=== PATIENT | male | born 1930 | race Caucasian/White ===

== ENCOUNTER 2016-03-25 16:12 | Emergency (ER) | payer MEDICARE ==
[2016-03-25 17:07] VITALS: TEMP 98
[2016-03-25] MEDS ORDERED: RX INFO: IV CONTRAST WAS GIVEN 1 EACH MISC MISCELLANE PRN (19:59)
--- NOTE | 2016-03-25 20:06 | ED ---
General Adult HPI - General Chief complaint: Fall Stated complaint: Fall - Head Injury Time Seen by Provider: 03/25/16 19:26 Source: patient, RN notes reviewed Mode of arrival: ambulatory Limitations: no limitations - History of Present Illness Initial comments: This is an 85-year-old male who presents after falling down 3 steps last nightst night. Patient states he was still having pain today and was concerned. Patient states he was in his garage when the lights went out and he tried to go back down the stairs but he tripped and fell on the right side of his body also hitting the right side of his head. Patient is unsure if he lost consciousness. Patient states he has a mild headache but denies any visual changes, diplopia, nausea/vomiting/neck pain. Patient states it was difficult for him to get up off of the ground floor and patient has only been ambulating a little bit since the fall. Patient denies being on any blood thinners. Patient denies any dizziness. Patient also complains of right-sided rib pain but denies any shortness of breath. Patient also complains of some mild abdominal pain but patient does not know when this started. Patient denies any recent fever, chills, chest pain, back pain, numbness, tingling, hematuria, or any other complaints. - Related Data Home Medications Medication Instructions Recorded Confirmed Brimonidine Tartrate [Alphagan P 1 drops BOTH EYES BID 03/25/16 03/25/16 0.15% Ophth Soln] Calcium Carbonate [Calcium] 600 mg PO DAILY 03/25/16 03/25/16 Latanoprost [Xalatan 0.005%] 1 drop BOTH EYES HS 03/25/16 03/25/16 Multivitamin [Men's Multi-Vitamin] 1 tab PO DAILY 03/25/16 03/25/16 Travoprost [Travatan Z 0.004%] 1 drop BOTH EYES BID 03/25/16 03/25/16 Allergies Allergy/AdvReac Type Severity Reaction Status Date / Time No Known Allergies Allergy Verified 03/25/16 19:37 Review of Systems ROS Statement: Those systems with pertinent positive or pertinent negative responses have been documented in the HPI. ROS Other: All systems not noted in ROS Statement are negative. Past Medical History Past Medical History: Diabetes Mellitus Additional Past Medical History / Comment(s): glaucoma History of Any Multi-Drug Resistant Organisms: None Reported Additional Past Surgical History / Comment(s): pt did not remember his surgery Past Psychological History: No Psychological Hx Reported Smoking Status: Former smoker Past Alcohol Use History: Daily Past Drug Use History: None Reported General Exam - General Exam Comments Initial Comments: General: The patient is awake and alert, in no distress, and does not appear acutely ill. Head: No pain with palpation of the facial bones. Head is normocephalic, atraumatic. Eye: Pupils are equal, round and reactive to light, extra-ocular movements are intact. No nystagmus. There is normal conjunctiva bilaterally. No signs of icterus. Ears: TMs pink and pearly with intact cone of light bilaterally. Normal external ear canals Nose: Nasal turbinates pink and moist Mouth and throat: There are moist mucous membranes and no oral lesions. Neck: The neck is supple, there is no tenderness or JVD. No cervical midline tenderness. Cardiovascular: There is a regular rate and rhythm. No murmur, rub or gallop is appreciated. Respiratory: Lungs are clear to auscultation, respirations are non-labored, breath sounds are equal. No wheezes, stridor, rales, or rhonchi. Gastrointestinal: There is mild tenderness to palpation over the right lower quadrant. Soft, non-distended, abdomen without masses or organomegaly noted. There is no rebound or guarding present. No CVA tenderness. Bowel sounds are unremarkable. Musculoskeletal: There is tenderness to palpation over the right side hip, right shoulder and right side ribs. Normal ROM, Strength 5/5. Sensation intact. Posterior tibial pulses equal bilaterally 2+. Neurological: A&O x 3. CN II-XII intact, There are no obvious motor or sensory deficits. Coordination appears grossly intact. Speech is normal. Skin: Skin is warm and dry and no rashes or lesions are noted. Psychiatric: Cooperative, appropriate mood & affect, normal judgment. Limitations: no limitations Course Vital Signs 03/25/16 03/25/16 03/25/16 16:55 20:40 22:57 Temperature 98.0 F Pulse Rate 64 78 73 Respiratory 18 16 16 Rate Blood Pressure 197/84 166/78 176/77 O2 Sat by Pulse 96 98 97 Oximetry Medical Decision Making - Medical Decision Making Physical a 5-year-old male who presents after a fall that occurred today. On physical exam patient is neurologically intact. Patient has tenderness over the right shoulder, right hip and right ribs. Patient also complains of mild headache. An x-ray of the right hip and AP pelvis was done and reviewed showing:X-ray hip right in AP pelvis: There is no acute fracture or dislocation of the pelvis or hip. Reported by Dr. Marquez X-ray of the right shoulder was done and reviewed showing:X-ray shoulder: No fracture or dislocation. CT of the head and C-spine was done and reviewed showing: #1 there is no acute fracture or dislocation evident in the cervical spine. #2 no acute intracranial hemorrhage, mass effect, or midline shift is seen. Reported by Dr. Marquez CT of chest, abdomen and pelvis was done and reviewed showing: No acute osseous fracture, abnormal fluid collection, or evidence of solid organ injury in the thorax, abdomen or pelvis. Report read by Dr. Marquez. Discussed the results with patient. Patient was up ambulating and answering all questions appropriately. I discussed the importance of following up with his family physician in the next 24-48 hours. I discussed the signs and symptoms of worsening head injury. I discussed return parameters. Discussed that patient should follow up with PCP in one to 2 days or return to the [facility] for any worsening symptoms or for any further concerns. Patient was receptive to this plan and patient will be discharged home. - Lab Data Result diagrams: 03/25/16 20:41 03/25/16 20:41 Lab Results 03/25/16 03/25/16 03/25/16 Range/Units 20:41 20:41 20:41 WBC 8.6 (3.8-10.6) k/uL RBC 4.56 (4.30-5.90) m/uL Hgb 13.3 (13.0-17.5) gm/dL Hct 40.9 (39.0-53.0) % MCV 89.5 (80.0-100.0) fL MCH 29.1 (25.0-35.0) pg MCHC 32.5 (31.0-37.0) g/dL RDW 13.1 (11.5-15.5) % Plt Count 238 (150-450) k/uL Neutrophils % 51 % Lymphocytes % 37 % Monocytes % 6 % Eosinophils % 4 % Basophils % 0 % Neutrophils # 4.4 (1.3-7.7) k/uL Lymphocytes # 3.2 (1.0-4.8) k/uL Monocytes # 0.5 (0-1.0) k/uL Eosinophils # 0.4 (0-0.7) k/uL Basophils # 0.0 (0-0.2) k/uL PT 10.0 (9.0-12.0) sec INR 1.0 (<1.1) APTT 23.0 (22.0-30.0) sec Sodium 144 (137-145) mmol/L Potassium 4.2 (3.5-5.1) mmol/L Chloride 103 (98-107) mmol/L Carbon Dioxide 29 (22-30) mmol/L Anion Gap 12 mmol/L BUN 19 (9-20) mg/dL Creatinine 0.60 L (0.66-1.25) mg/dL Est GFR (MDRD) Af Amer >60 (>60 ml/min/1.73 sqM) Est GFR (MDRD) Non-Af >60 (>60 ml/min/1.73 sqM) Glucose 107 H (74-99) mg/dL Calcium 9.7 (8.4-10.2) mg/dL Total Bilirubin 0.4 (0.2-1.3) mg/dL AST 31 (17-59) U/L ALT 32 (21-72) U/L Alkaline Phosphatase 71 (38-126) U/L Total Protein 7.6 (6.3-8.2) g/dL Albumin 4.2 (3.5-5.0) g/dL Amylase 94 (30-110) U/L Lipase 154 (23-300) U/L Disposition Clinical Impression: Fall, Head injury Disposition: HOME SELF-CARE Condition: Good Instructions: Head Injury (ED) Additional Instructions: Please follow-up with family doctor in the next 2 days of symptoms have not improved. Please return to emergency room if the symptoms increase or worsen or for any other concerns. Referrals: Sylvester Pena DO [Primary Care Provider] - 1-2 days Time of Disposition: 23:24
[2016-03-25 20:48] VITALS: RESP 16
[2016-03-25 20:53] LABS: Basophils % (A) 0 %; CH 29.6; CHCM 33.2; Eosinophils # (A) 0.4 k/uL (0-0.7); Eosinophils % (A) 4 %; HCT 40.9 % (39.0-53.0); HDW 2.38; HGB 13.3 gm/dL (13.0-17.5); Luc # (Auto) 0.17; Luc % (Auto) 2; Lymphocytes # (A) 3.2 k/uL (1.0-4.8); Lymphocytes % (A) 37 %; MCH 29.1 pg (25.0-35.0); MCHC 32.5 g/dL (31.0-37.0); MCV 89.5 fL (80.0-100.0); Mean Platelet Volume 7.3; Monocytes # (A) 0.5 k/uL (0-1.0); Monocytes % (A) 6 %; Neutrophils # (A) 4.4 k/uL (1.3-7.7); Neutrophils % (A) 51 %; RBC 4.56 m/uL (4.30-5.90); RDW 13.1 % (11.5-15.5); WBC 8.6 k/uL (3.8-10.6); WBC (Perox) 8.64
[2016-03-25 21:08] LABS: ALT 32 U/L (21-72); AST 31 U/L (17-59); Alkaline Phosphatase 71 U/L (38-126); Amylase 94 U/L (30-110); Anion Gap 12 mmol/L; Blood Urea Nitrogen 19 mg/dL (9-20); Calcium 9.7 mg/dL (8.4-10.2); Carbon Dioxide 29 mmol/L (22-30); Chloride 103 mmol/L (98-107); Glucose 107 mg/dL (74-99); Non-African American GFR(MDRD) >60 (>60 ml/min/1.73 sqM); Potassium 4.2 mmol/L (3.5-5.1); Sodium 144 mmol/L (137-145); Total Bilirubin 0.4 mg/dL (0.2-1.3); Total Protein 7.6 g/dL (6.3-8.2)
--- NOTE | 2016-03-25 21:23 | XR ---
Right shoulder HISTORY: Trauma and pain 3 views of the right shoulder No comparisons Arthropathy present at the acromioclavicular joint. Distal acromion is downturned. Suspect there are pseudocysts within the humeral head. Alignment and bone mineralization are maintained. IMPRESSION: No fracture or dislocation.
--- NOTE | 2016-03-25 21:25 | XR ---
EXAMINATION TYPE: XR Hip RT and AP Pelvis DATE OF EXAM: 03/25/2016 9:13 PM COMPARISON: NONE HISTORY: Pain TECHNIQUE: A single AP view of the pelvis is obtained. Two views of the right hip are obtained. FINDINGS: There is no acute fracture/dislocation evident in the pelvis. The hip and sacroiliac join ts appear symmetric and unremarkable. The overlying soft tissue appears unremarkable. Two views of right hip show no acute fracture or dislocation. No focal lytic or sclerotic lesion see n in the proximal right femur. The overlying soft tissue is unremarkable. IMPRESSION: There is no acute fracture or dislocation in the pelvis or right hip.
--- NOTE | 2016-03-25 22:07 | CT ---
EXAMINATION TYPE: CT brain alan wo con DATE OF EXAM: 03/25/2016 9:44 PM COMPARISON: CT brain 10 December 2015 HISTORY: Fall today and confusion. CT DLP: 965.6 mGycm Automated exposure control for dose reduction was used. TECHNIQUE: CT scan of the head and cervical spine are performed without contrast. FINDINGS: There is no acute intracranial hemorrhage, mass effect, or midline shift identified. The ventricles and sulci are within normal limits in size. Periventricular white matter demyelination ch anges again noted. The globes are intact and the visualized sinuses are clear. Cervical spine is visualized in its entirety from C1 through upper thoracic levels and demonstrates s atisfactory alignment without evidence of acute fracture or dislocation. Multilevel facet arthropathy and foraminal encroachment change is present. Multilevel spondylosis. Loss of disc height present at C4-5, C5-6 and C6-7, minimal anterolisthesis grade 1 C4-5 likely due to facet arthropathy changes. P osterior extension of endplate disc complex is causes some anterior mass effect on the thecal sac at C5-6 and C6-7. Prevertebral soft tissue appears within normal limits. The C1-C2 articulation is unre markable. IMPRESSION: 1. There is no acute fracture or dislocation evident in the cervical spine. 2. No acute intracranial hemorrhage, mass effect, or midline shift is seen.
[2016-03-25 23:02] VITALS: BP 176/77; PULSE 73
--- NOTE | 2016-03-25 23:20 | CT ---
EXAMINATION TYPE: CT ChestAbdPelvis w con DATE OF EXAM: 03/25/2016 9:44 PM COMPARISON: Prior CT chest 15 March 2012 HISTORY: Abdominal pain after fall today. CT DLP: 2466.6 mGycm Automated exposure control for dose reduction was used. CONTRAST: CT scan of the chest, abdomen and pelvis is performed without Oral Contrast and with IV Contrast, pat ient injected with 100 mL of Omnipaque 300. FINDINGS: LUNGS: The lungs are grossly clear, there is no concerning parenchymal mass or nodule identified. B ronchiectasis present in the right middle lobe. There is no pleural effusion or pneumothorax seen. T he tracheobronchial tree is patent. MEDIASTINUM: There are no greater than 1 cm hilar or mediastinal lymph nodes. No pericardial effusi on is seen. AORTA: No significant abnormality is seen. Atheromatous changes are present. OTHER: Coronary artery calcifications are present. Calcifications present at the aortic root. There is a hiatal hernia. LIVER/GB: No significant abnormality is appreciated. PANCREAS: No significant abnormality is seen. SPLEEN: No significant abnormality is seen. ADRENALS: No significant abnormality is seen. KIDNEYS: Parapelvic cysts are present within the right kidney. REPRODUCTIVE ORGANS: No gross abnormality seen. BOWEL: extensive diverticular change present within the sigmoid colon. FREE AIR: No Free Air visible. ASCITES: None seen. RETROPERITONEAL ADENOPATHY: No retroperitoneal adenopathy is seen. LYMPH NODES: No greater than 1 cm abdominal or pelvic lymph nodes are appreciated. URINARY BLADDER: No significant abnormality is seen. PELVIC ADENOPATHY: None visualized. OSSEOUS STRUCTURES: No significant abnormality is seen. IMPRESSION: No acute osseous fracture, abnormal fluid collection, or evidence of solid organ injury i n the thorax, abdomen, or pelvis.
== END 2016-03-25 23:26 | disposition home or self-care (01) ==
LOC: EC 16:12
DX: S09.90XA Unspecified injury of head, initial encounter (principal); W10.8XXA Fall (on) (from) other stairs and steps, initial encounter; Y92.015 Private garage of single-family (private) house as the place of occurrence of the external cause; Z79.899 Other long term (current) drug therapy; H40.9 Unspecified glaucoma; Z87.891 Personal history of nicotine dependence; M25.551 Pain in right hip; M25.511 Pain in right shoulder; R07.81 Pleurodynia
CPT/HCPCS: 36415; 80053; 82150; 83690; 85025; 85610; 85730; 73502; 73030; 72125; 70450; 71260; 74177; 99284; Q9967

== ENCOUNTER → 2016-04-04 | Outpatient (CLI) | payer MEDICARE ==
--- NOTE | 2016-04-05 09:29 | ECHOF ---
Referral Reason:I35.0 Nonrheumatic aortic stenosis MEASUREMENTS -------- HEIGHT: 182.9 cm WEIGHT: 90.7 kg BP: IVSd: 1.0 cm (0.6 - 1.1) LVIDd: 4.1 cm (3.9 - 5.3) LVPWd: 1.1 cm (0.6 - 1.1) IVSs: 1.9 cm LVIDs: 1.8 cm LVPWs: 1.4 cm Ao Diam: 3.0 cm (2.0 - 3.7) AV Cusp: 0.8 cm (1.5 - 2.6) LA Diam: 3.6 cm (2.7 - 3.8) MV EXCURSION: 7.289 mm (> 18.000) MV EF SLOPE: 35 mm/s (70 - 150) EPSS: 0.4 cm MV E Enzo: 0.87 m/s MV DecT: 479 ms MV A Enzo: 1.40 m/s MV E/A Ratio: 0.62 AV maxP.64 mmHg AV meanP.44 mmHg AR PHT: 387 ms RAP: 5.00 mmHg RVSP: 17.98 mmHg FINDINGS -------- Undetermined rhythm. This was a technically good study. Left ventricular wall thickness is normal. Overall left ventricular systolic function is normal with, an EF between 55 - 60 %. The right ventricle is normal in size and function. The left atrium is normal in size. The right atrium is normal in size. Aortic valve is trileaflet and is moderately thickened. Trace amount of aortic regurgitation. There is moderate aortic stenosis present. Peak/mean gradient across the Aortic Valve is 30.64mmHg / 21.44mmHg. The mitral valve leaflets are mildly thickened. Mild mitral annular calcification present. Mild mitral regurgitation is present. Mild tricuspid regurgitation present. The right ventricular systolic pressure, as measured by Doppler, is 17.98mmHg. Pulmonic valve appears structurally normal. The aortic root size is normal. The pericardium is normal. CONCLUSIONS -------- 1. Undetermined rhythm. 2. There is moderate aortic stenosis present. 3. Peak/mean gradient across the Aortic Valve is 30.64mmHg / 21.44mmHg. 4. The mitral valve leaflets are mildly thickened. 5. Mild mitral annular calcification present. 6. Mild mitral regurgitation is present. 7. Mild tricuspid regurgitation present. 8. The right ventricular systolic pressure, as measured by Doppler, is 17.98mmHg. 9. Pulmonic valve appears structurally normal. 10. The aortic root size is normal. 11. The pericardium is normal. 12. This was a technically good study. 13. Left ventricular wall thickness is normal. 14. Overall left ventricular systolic function is normal with, an EF between 55 - 60 %. 15. The right ventricle is normal in size and function. 16. The left atrium is normal in size. 17. The right atrium is normal in size. 18. Aortic valve is trileaflet and is moderately thickened. 19. Trace amount of aortic regurgitation. ORTHO NURSE: Jeanie Montejo RDCS
== END | disposition home or self-care (01) ==
LOC: RADECHMAIN 11:30
PROVIDERS: ATTEND Family Medicine
DX: I08.3 Combined rheumatic disorders of mitral, aortic and tricuspid valves (principal)
CPT/HCPCS: 93306

== ENCOUNTER 2017-06-06 10:16 | Emergency (ER) | payer MEDICARE ==
--- NOTE | 2017-06-06 10:29 | ED ---
General Adult HPI - General Stated complaint: Fall Time Seen by Provider: 06/06/17 10:19 Source: patient, EMS, RN notes reviewed, old records reviewed - History of Present Illness Initial comments: 86 yo male presents status post fall. According to EMS patient fell approximately 10 PM yesterday evening. He's been on the ground for approximately 12 hours. Patient states he slid from a chair, he did hit his head. There is no history of anticoagulation. Patient denies any chest pain or shortness of breath. He has no pain complaints at the time my evaluation. Patient does have some baseline confusion. And history of diabetes. EMS denies any external signs of trauma on their exam. - Related Data Home Medications Medication Instructions Recorded Confirmed Brimonidine Tartrate [Alphagan P 1 drops BOTH EYES BID 03/25/16 06/06/17 0.15% Ophth Soln] Latanoprost [Xalatan 0.005%] 1 drop BOTH EYES HS 03/25/16 06/06/17 Multivitamin [Men's Multi-Vitamin] 1 tab PO DAILY 03/25/16 06/06/17 Ascorbic Acid [Vitamin C] 500 mg PO DAILY 06/06/17 06/06/17 Dorzolamide 2% [Trusopt 2%] 1 drops BOTH EYES BID 06/06/17 06/06/17 Ferrous Sulfate [Feosol] 325 mg PO DAILY 06/06/17 06/06/17 Vitamin A 8,000 unit PO DAILY 06/06/17 06/06/17 Allergies Allergy/AdvReac Type Severity Reaction Status Date / Time No Known Allergies Allergy Verified 06/06/17 11:23 Review of Systems ROS Statement: Those systems with pertinent positive or pertinent negative responses have been documented in the HPI. ROS Other: All systems not noted in ROS Statement are negative. Past Medical History Past Medical History: Diabetes Mellitus Additional Past Medical History / Comment(s): glaucoma History of Any Multi-Drug Resistant Organisms: None Reported Additional Past Surgical History / Comment(s): pt did not remember his surgery Past Psychological History: No Psychological Hx Reported Smoking Status: Former smoker Past Alcohol Use History: Daily Past Drug Use History: None Reported General Exam General appearance: alert, in no apparent distress Head exam: Present: atraumatic, normocephalic Eye exam: Present: normal appearance, PERRL (2 mm bilaterally) ENT exam: Present: mucous membranes dry Neck exam: Present: normal inspection. Absent: tenderness, meningismus Respiratory exam: Present: normal lung sounds bilaterally. Absent: respiratory distress, wheezes Cardiovascular Exam: Present: regular rate, normal rhythm GI/Abdominal exam: Present: soft. Absent: distended, tenderness Extremities exam: Present: normal inspection, tenderness (Right knee tenderness palpation, patient states is chronic), normal capillary refill Back exam: Present: normal inspection, full ROM. Absent: tenderness Neurological exam: Present: alert, oriented X3, CN II-XII intact. Absent: motor sensory deficit Psychiatric exam: Present: normal affect, normal mood Skin exam: Present: warm, dry, intact. Absent: cyanosis, diaphoretic Course Vital Signs 06/06/17 06/06/17 06/06/17 10:18 10:30 12:45 Temperature 97.8 F Pulse Rate 62 81 60 Respiratory 19 16 16 Rate Blood Pressure 207/94 197/86 161/76 O2 Sat by Pulse 95 97 99 Oximetry - Reevaluation(s) Reevaluation #1: 06/06/17 14:09 Case discussed with the patient's son who is at bedside, he has been having some issues with dementia, currently lives alone, he is checked on daily by visiting nurses. His son recently moved to the area to keep a close eye on him. EKG Findings - EKG Comments: EKG Findings:: EKG, normal sinus rhythm, right bundle branch block, ventricular rate 65, NH interval 182, QRS duration [address] segment elevation Medical Decision Making - Medical Decision Making 86-year-old male with fall and difficult ambulating. Head CT is obtained, negative for any acute intra-critical pathology, C-spine is negative for fracture subluxation, chest x-ray negative for acute intrathoracic processes. Pelvis is negative for acute bony abnormality. X-ray knee shows effusion, patient does have pain in that knee. He will be given orthopedic follow-up. CBC, CMP, and urinalysis are unremarkable. Patient has been told by his family that he should likely move into an assisted living facility or prison, patient wishes to stay at home. He wishes to be discharged at this time. Patient's son will arrange for close outpatient follow-up and the possibility of placement as well as home medical alert system. Patient is put in a knee immobilizer and given a prescription for a walker. - Lab Data Result diagrams: 06/06/17 10:30 06/06/17 10:30 Lab Results 06/06/17 06/06/17 06/06/17 Range/Units 10:30 10:30 10:30 WBC 10.1 (3.8-10.6) k/uL RBC 4.46 (4.30-5.90) m/uL Hgb 13.3 (13.0-17.5) gm/dL Hct 39.2 (39.0-53.0) % MCV 87.8 (80.0-100.0) fL MCH 29.8 (25.0-35.0) pg MCHC 33.9 (31.0-37.0) g/dL RDW 13.1 (11.5-15.5) % Plt Count 274 (150-450) k/uL Neutrophils % 74 % Lymphocytes % 18 % Monocytes % 4 % Eosinophils % 2 % Basophils % 0 % Neutrophils # 7.5 (1.3-7.7) k/uL Lymphocytes # 1.8 (1.0-4.8) k/uL Monocytes # 0.4 (0-1.0) k/uL Eosinophils # 0.2 (0-0.7) k/uL Basophils # 0.0 (0-0.2) k/uL PT (9.0-12.0) sec INR (<1.2) APTT (22.0-30.0) sec Sodium 142 (137-145) mmol/L Potassium 4.1 (3.5-5.1) mmol/L Chloride 103 (98-107) mmol/L Carbon Dioxide 29 (22-30) mmol/L Anion Gap 10 mmol/L BUN 19 (9-20) mg/dL Creatinine 0.57 L (0.66-1.25) mg/dL Est GFR (CKD-EPI)AfAm >90 (>60 ml/min/1.73 sqM) Est GFR (CKD-EPI)NonAf >90 (>60 ml/min/1.73 sqM) Glucose 128 H (74-99) mg/dL Calcium 9.7 (8.4-10.2) mg/dL Total Bilirubin 0.4 (0.2-1.3) mg/dL AST 24 (17-59) U/L ALT 22 (21-72) U/L Alkaline Phosphatase 62 (38-126) U/L Total Creatine Kinase 177 H (55-170) U/L CK-MB (CK-2) 1.3 (0.0-2.4) ng/mL CK-MB (CK-2) Rel Index 0.7 Troponin I <0.012 (0.000-0.034) ng/mL Total Protein 7.1 (6.3-8.2) g/dL Albumin 4.1 (3.5-5.0) g/dL Urine Color Urine Appearance (Clear) Urine pH (5.0-8.0) Ur Specific [place] (1.001-1.035) Urine Protein (Negative) Urine Glucose (UA) (Negative) Urine Ketones (Negative) Urine Blood (Negative) Urine Nitrite (Negative) Urine Bilirubin (Negative) Urine Urobilinogen (<2.0) mg/dL Ur Leukocyte Esterase (Negative) 06/06/17 06/06/17 Range/Units 10:30 11:09 WBC (3.8-10.6) k/uL RBC (4.30-5.90) m/uL Hgb (13.0-17.5) gm/dL Hct (39.0-53.0) % MCV (80.0-100.0) fL MCH (25.0-35.0) pg MCHC (31.0-37.0) g/dL RDW (11.5-15.5) % Plt Count (150-450) k/uL Neutrophils % % Lymphocytes % % Monocytes % % Eosinophils % % Basophils % % Neutrophils # (1.3-7.7) k/uL Lymphocytes # (1.0-4.8) k/uL Monocytes # (0-1.0) k/uL Eosinophils # (0-0.7) k/uL Basophils # (0-0.2) k/uL PT 10.1 (9.0-12.0) sec INR 1.0 (<1.2) APTT 22.6 (22.0-30.0) sec Sodium (137-145) mmol/L Potassium (3.5-5.1) mmol/L Chloride (98-107) mmol/L Carbon Dioxide (22-30) mmol/L Anion Gap mmol/L BUN (9-20) mg/dL Creatinine (0.66-1.25) mg/dL Est GFR (CKD-EPI)AfAm (>60 ml/min/1.73 sqM) Est GFR (CKD-EPI)NonAf (>60 ml/min/1.73 sqM) Glucose (74-99) mg/dL Calcium (8.4-10.2) mg/dL Total Bilirubin (0.2-1.3) mg/dL AST (17-59) U/L ALT (21-72) U/L Alkaline Phosphatase (38-126) U/L Total Creatine Kinase (55-170) U/L CK-MB (CK-2) (0.0-2.4) ng/mL CK-MB (CK-2) Rel Index Troponin I (0.000-0.034) ng/mL Total Protein (6.3-8.2) g/dL Albumin (3.5-5.0) g/dL Urine Color Yellow Urine Appearance Clear (Clear) Urine pH 6.5 (5.0-8.0) Ur Specific [place] 1.012 (1.001-1.035) Urine Protein Negative (Negative) Urine Glucose (UA) Negative (Negative) Urine Ketones Negative (Negative) Urine Blood Negative (Negative) Urine Nitrite Negative (Negative) Urine Bilirubin Negative (Negative) Urine Urobilinogen <2.0 (<2.0) mg/dL Ur Leukocyte Esterase Negative (Negative) Disposition Clinical Impression: Fall, Knee effusion Disposition: HOME SELF-CARE Condition: Fair Instructions: Fall Prevention for Older Adults (ED), Swollen Knee Joint (ED) Referrals: Sylvester Pena DO [Primary Care Provider] - 1-2 days Dawit Garibay MD [Medical Doctor] - 1-2 days Time of Disposition: 14:11
[2017-06-06 10:35] VITALS: RESP 16
[2017-06-06 10:45] LABS: Basophils % (A) 0 %; Eosinophils # (A) 0.2 k/uL (0-0.7); Eosinophils % (A) 2 %; HCT 39.2 % (39.0-53.0); HGB 13.3 gm/dL (13.0-17.5); Lymphocytes # (A) 1.8 k/uL (1.0-4.8); Lymphocytes % (A) 18 %; MCH 29.8 pg (25.0-35.0); MCHC 33.9 g/dL (31.0-37.0); MCV 87.8 fL (80.0-100.0); Mean Platelet Volume 6.6; Monocytes # (A) 0.4 k/uL (0-1.0); Monocytes % (A) 4 %; Neutrophils # (A) 7.5 k/uL (1.3-7.7); Neutrophils % (A) 74 %; Platelet Count 274 k/uL (150-450); RBC 4.46 m/uL (4.30-5.90); RDW 13.1 % (11.5-15.5); WBC 10.1 k/uL (3.8-10.6)
[2017-06-06 10:54] LABS: Partial Thromboplastin Time 22.6 sec (22.0-30.0); Prothrombin Time 10.1 sec (9.0-12.0)
[2017-06-06 10:57] LABS: ALT 22 U/L (21-72); AST 24 U/L (17-59); Albumin 4.1 g/dL (3.5-5.0); Alkaline Phosphatase 62 U/L (38-126); Anion Gap 10 mmol/L; Blood Urea Nitrogen 19 mg/dL (9-20); Calcium 9.7 mg/dL (8.4-10.2); Carbon Dioxide 29 mmol/L (22-30); Chloride 103 mmol/L (98-107); Glucose 128 mg/dL (74-99); Potassium 4.1 mmol/L (3.5-5.1); Sodium 142 mmol/L (137-145); Total Bilirubin 0.4 mg/dL (0.2-1.3); Total Protein 7.1 g/dL (6.3-8.2)
[2017-06-06 11:07] LABS: Creatine Kinase 177 U/L (55-170)
[2017-06-06 11:20] LABS: Creatine Kinase MB 1.3 ng/mL (0.0-2.4); Troponin I <0.012 ng/mL (0.000-0.034)
[2017-06-06 11:23] LABS: Appearance,Urine Clear (Clear); Bilirubin,Urine Negative (Negative); Blood,Urine Negative (Negative); Color,Urine Yellow; Glucose,Urine (UA) Negative (Negative); Ketones,Urine Negative (Negative); Leukocyte Esterase,Urine Negative (Negative); Nitrite,Urine Negative (Negative); Urobilinogen,Urine <2.0 mg/dL (<2.0)
[2017-06-06 11:29] LABS: PH, Urine 6.5 (5.0-8.0); Protein,Urine Negative (Negative)
[2017-06-06 11:31] LABS: Specific Gravity,Urine 1.012 (1.001-1.035)
--- NOTE | 2017-06-06 11:32 | CT ---
EXAMINATION TYPE: CT brain alan badillo con DATE OF EXAM: 06/06/2017 COMPARISON: 03/25/2016 HISTORY: Fall and neck pain CT DLP: 1412.5 mGycm. Automated Exposure Control for Dose Reduction was Utilized. TECHNIQUE: CT scan of the head and cervical spine are performed without contrast. FINDINGS: There is no acute intracranial hemorrhage or midline shift identified. There is diffuse v entricular and sulcal prominence consistent with diffuse age-related cerebral atrophy. There is low- attenuation in the periventricular white matter consistent with chronic small vessel ischemic change. The globes are intact and the visualized sinuses are clear. Cervical spine is visualized in its entirety from C1 through upper thoracic levels. There is straigh tening of the usual cervical lordosis. There is minimal grade 1 anterolisthesis of C4 and C5. Small d isc osteophyte complexes are seen at C5-C6 and C6-C7 as well as at 71 resulting in mild spinal canal stenosis at these levels. Moderate degenerative changes of the cervical spine are displayed is uncove rtebral hypertrophy, anterior osteophytes, facet arthropathy and intervertebral disc space narrowing as well as endplate sclerosis. Evaluation of the spinal canal is limited on CT. Prevertebral soft tis mar appears within normal limits. The C1-C2 articulation is unremarkable. Incidental note is made o f atheromatous calcifications of the carotid arteries. Mild centrilobular and paraseptal emphysematou s changes are seen at the lung apices IMPRESSION: 1. There is no acute fracture or dislocation evident in the cervical spine. 2. No acute intracranial process. Redemonstration of diffuse age-related cerebral atrophy and chronic small vessel ischemic change noted. 3. Degenerative changes of the cervical spine and straightening of usual cervical lordosis that may r elate to muscular strain or spasm.
--- NOTE | 2017-06-06 12:53 | XR ---
EXAMINATION TYPE: XR pelvis AP view DATE OF EXAM: 06/06/2017 COMPARISON: NONE HISTORY: 86-year-old male fall last night, trauma TECHNIQUE: AP view FINDINGS: Diffuse osteopenia. No displaced fractures. Pubic symphysis and SI joints appear intact. Vascular isabel cifications in the pelvis. Mild degenerative change at both hips. IMPRESSION: Osteopenia without displaced fracture. Mild bilateral hip OA.
--- NOTE | 2017-06-06 12:55 | XR ---
EXAMINATION TYPE: XR chest 2V DATE OF EXAM: 06/06/2017 COMPARISON: 03/15/2012 HISTORY: 86-year-old male with trauma and pain TECHNIQUE: AP and lateral views FINDINGS: Heart upper limits of normal in size. Mild elongation/ectasia of the thoracic aorta with arch calcifi cations. Diffuse interstitial prominence is unchanged. Strandy areas of atelectasis in the mid and lo wer lungs. No consolidation, pneumothorax, or pleural effusion. IMPRESSION: Chronic changes, possible chronic bronchitis/asthma. No acute cardiopulmonary process.
--- NOTE | 2017-06-06 12:58 | XR ---
EXAMINATION TYPE: XR knee complete RT DATE OF EXAM: 06/06/2017 COMPARISON: NONE HISTORY: 86-year-old male with pain after fall last night TECHNIQUE: 3 views FINDINGS: Moderate degenerative joint space narrowing and marginal spurring at the medial compartment. There is focal subchondral lucency along the weightbearing medial femoral condyle and a moderate knee joint e ffusion. No likely hemarthrosis. Extensor mechanism is intact. Degenerative spurring in the patellofe moral compartment and vascular calcifications. Otherwise, no acute fracture or dislocation. IMPRESSION: 1. Moderate knee joint effusion. 2. Focal subchondral lucency in the weightbearing medial femoral condyle could reflect degenerative s ubchondral changes in the bone or a subtle impaction/insufficiency fracture. 3. Moderate knee joint effusion without lipohemarthrosis. Consider MRI follow-up if indicated.
[2017-06-06 14:28] VITALS: BP 159/78; PULSE 78; TEMP 98.2
== END 2017-06-06 14:25 | disposition home or self-care (01) ==
LOC: EC 10:16
DX: M25.461 Effusion, right knee (principal); H40.9 Unspecified glaucoma; R41.0 Disorientation, unspecified; Z79.899 Other long term (current) drug therapy; Z87.891 Personal history of nicotine dependence; W07.XXXA Fall from chair, initial encounter
CPT/HCPCS: 36415; 70450; 71046; 72125; 72170; 80053; 81003; 82550; 82553; 84484; 85025; 85610; 85730; 93005; 99285

== ENCOUNTER → 2017-07-01 | Outpatient (CLI) | payer MEDICARE ==
--- NOTE | 2017-07-01 13:00 | ECHOF ---
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 This was a technically good study. The left ventricular size is normal. There is moderate concentric left ventricular hypertrophy. O verall left ventricular systolic function is normal with, an EF between 55 - 60 %. The right ventricle is mildly enlarged. Normal LA size by volume 22+/-6 ml/m2. The right atrium is normal in size. There is moderate aortic valve sclerosis. There is mild aortic stenosis present. Peak/mean gradie nt across the Aortic Valve is 20.25mmHg / 12.45mmHg. The mitral valve leaflets are mildly thickened. Mild mitral annular calcification present. Mild m itral regurgitation is present. Mild tricuspid regurgitation present. Right ventricular systolic pressure is normal at < 35 mmHg. The pulmonic valve was not well visualized. The aortic root size is normal. Normal inferior vena cava with normal inspiratory collapse consistent with estimated right atrial pre ssure of 5 mmHg. There is no pericardial effusion. CONCLUSIONS -------- 1. Resting bradycardia (HR<60bpm). 2. This was a technically good study. 3. The left ventricular size is normal. 4. There is moderate concentric left ventricular hypertrophy. 5. Overall left ventricular systolic function is normal with, an EF between 55 - 60 %. 6. The right ventricle is mildly enlarged. 7. Normal LA size by volume 22+/-6 ml/m2. 8. The right atrium is normal in size. 9. There is moderate aortic valve sclerosis. 10. There is mild aortic stenosis present. 11. Peak/mean gradient across the Aortic Valve is 20.25mmHg / 12.45mmHg. 12. The mitral valve leaflets are mildly thickened. 13. Mild mitral annular calcification present. 14. Mild mitral regurgitation is present. 15. Mild tricuspid regurgitation present. 16. Right ventricular systolic pressure is normal at < 35 mmHg. 17. The pulmonic valve was not well visualized. 18. The aortic root size is normal. 19. Normal inferior vena cava with normal inspiratory collapse consistent with estimated right atrial pressure of 5 mmHg. 20. There is no pericardial effusion. [employer]: Amber Mejias RDCS
== END | disposition home or self-care (01) ==
LOC: RADECHMAIN 11:10
PROVIDERS: ATTEND Family Medicine
DX: I35.0 Nonrheumatic aortic (valve) stenosis (principal)
CPT/HCPCS: 93306

== ENCOUNTER 2018-03-03 12:26 | Emergency (ER) | payer MEDICARE ==
[2018-03-03 12:43] VITALS: TEMP 97.7
[2018-03-03] MEDS ORDERED: DIPH,PERTUS(ACELL)TETVAC-LF 0.5 ML VIAL IM ONE (12:56)
--- NOTE | 2018-03-03 14:05 | CT ---
EXAMINATION TYPE: CT brain alan badillo con DATE OF EXAM: 03/03/2018 COMPARISON: 06/06/2017 HISTORY: 87-year-old male with Pain. CT DLP: 1351.7 mGycm Automated exposure control for dose reduction was used. Technique: Examination of the head was done in axial plane without intravenous contrast. Coronal and sagittal reconstructions performed. CT of the cervical spine was obtained in axial plane without intravenous injection of contrast mater ial. Coronal and sagittal reformatted images were obtained from the axial views for evaluation of f ractures, spinal alignment and canal. FINDINGS: Head: There is no evidence of acute intracranial hemorrhage, acute ischemic changes, mass, mass-effect, or extra-axial fluid collection. There is no effacement of cerebral sulci or basal subarachnoid cister ns. There is no hydrocephalus. There is no midline shift. Emerson-white matter distinction is preserv ed. Redemonstrated mild generalized supratentorial volume loss and severe patchy and confluent white flores er hypodensities in both cerebral hemispheres. Paranasal sinuses and mastoid air cells well pneumatized. Orbits and globes are intact. Cervical spine: No craniocervical junction is normally, predental space widening, or prevertebral soft tissue swellin g. Degenerative changes of the C1 dens articulation. Trace grade 1 anterolisthesis at C4-C5 with reversal of the normal cervical lordosis mid to lower cer vical spine. Additional trace grade 1 anterolisthesis at C7-T1. Moderate to advanced disc/endplate degenerative change and endplate spondylosis mid to lower thoracic spine. Assessment of the spinal canal limited from C6-C7 and below due to artifact from patient's sh oulders. At least mild spinal canal narrowing at C5-C6 due to disc osteophyte complex. Multilevel moderate to advanced facet and uncovertebral joint arthropathy is present. Changes result in moderate right and mild left neuroforaminal stenosis at C5-C6, moderate left and mi ld right at C6-C7, and moderate left and mild right at C7-T1. No acute fracture of the cervical spine. Emphysematous change seen within the visualized upper lungs. Also, there is some retained frothy secr etions within the right dependent aspect of the trachea. Sagittal and coronal reformatted images confirm above findings. COMBINED IMPRESSION: 1. No acute intracranial abnormality seen. Similar severe patchy and confluent burden of chronic smal l vessel ischemic disease. 2. No acute fracture of the cervical spine. Degenerative grade 1 anterolistheses at C4-C5 and C7-T1 r edemonstrated with moderate to advanced multilevel spondylotic change. 3. COPD. Some retained frothy secretions within the trachea incidentally noted.
--- NOTE | 2018-03-03 14:43 | XR ---
EXAMINATION TYPE: XR chest 1V portable DATE OF EXAM: 03/03/2018 Comparison: 06/06/2017 Clinical History: 87-year-old male with fall Findings: Slight rightward patient rotation alters normal cardiac mediastinal contours. Heart upper limits of n ormal in size. Elongated/ectatic thoracic aorta with atherosclerotic arch calcifications. Interstitia l densities with relative upper lung lucencies and hyperinflation. There is some patchy right lower l juan antonio density noted. No pleural effusion. Impression: Slightly rotated exam. COPD. There is some patchy atelectasis or early infiltrate at the right lower lung.
--- NOTE | 2018-03-03 14:47 | XR ---
EXAMINATION TYPE: XR pelvis AP view DATE OF EXAM: 03/03/2018 COMPARISON: 06/06/2017 HISTORY: 87-year-old male with pain after fall FINDINGS: Exam very limited due to patient positioning. The left iliac crest is partially excluded. The patient is obliqued, rotated, and the left greater trochanter and subtrochanteric region is excluded. No obv ious displaced fracture of the visualized portions. Osteopenia. Mild generalized joint space narrowin g on both sides. IMPRESSION: Very limited exam due to combination of osteopenia and poor patient positioning. Portions of the rele vant anatomy are excluded from view. No displaced fracture seen of the visualized portions.
--- NOTE | 2018-03-03 15:26 | ED ---
General Adult HPI - General Chief complaint: Fall Stated complaint: Fall Time Seen by Provider: 03/03/18 12:35 Source: patient, RN notes reviewed, old records reviewed Limitations: no limitations - History of Present Illness Initial comments: 87-year-old male presents from snf for evaluation of fall with head trauma. Patient has advanced dementia, unable to contribute to the history significantly. He denies any pain complaints the time my evaluation. Patient is coming from dementia unit. Patient is uncertain if he lost consciousness. There is no reported anticoagulation on the medical record. Patient denies head or neck pain. Denies chest pain. Denies abdominal pain. Denies extremity pain. - Related Data Home Medications Medication Instructions Recorded Confirmed Brimonidine Tartrate [Alphagan P 1 drops BOTH EYES BID 03/25/16 03/03/18 0.15% Ophth Soln] Latanoprost [Xalatan 0.005%] 1 drop BOTH EYES HS 03/25/16 03/03/18 Multivitamin [Men's Multi-Vitamin] 1 tab PO DAILY 03/25/16 03/03/18 Dorzolamide 2% [Trusopt 2%] 1 drops BOTH EYES BID 06/06/17 03/03/18 Nystatin 100,000 Unit/gm Powd 1 applic TOPICAL BID PRN 03/03/18 03/03/18 [Mycostatin Powder] Sodium Chloride 5% Ophth Soln 1 drops BOTH EYES BID 03/03/18 03/03/18 [Carlos 128] Timolol Maleate [Timolol Maleate 1 applic BOTH EYES BID 03/03/18 03/03/18 0.5% Ophth Gel] Zinc Oxide [Desitin] 1 applic TOPICAL BID 03/03/18 03/03/18 Previous Rx's Medication Instructions Recorded Levofloxacin [Levaquin] 750 mg PO DAILY 5 Days #5 tab 03/03/18 Allergies Allergy/AdvReac Type Severity Reaction Status Date / Time No Known Allergies Allergy Verified 03/03/18 13:09 Review of Systems ROS Statement: Those systems with pertinent positive or pertinent negative responses have been documented in the HPI. ROS Other: All systems not noted in ROS Statement are negative. Past Medical History Past Medical History: Dementia, Diabetes Mellitus Additional Past Medical History / Comment(s): glaucoma History of Any Multi-Drug Resistant Organisms: None Reported Additional Past Surgical History / Comment(s): pt did not remember his surgery Past Psychological History: No Psychological Hx Reported Smoking Status: Former smoker Past Alcohol Use History: Daily Past Drug Use History: None Reported General Exam Limitations: no limitations General appearance: alert, in no apparent distress Head exam: Present: normocephalic, other (Abrasion to the forehead, and nasal bridge.) Eye exam: Present: normal appearance, PERRL, other (No hyphema, there is left- sided medial some conjunctival hemorrhage, bilateral corneal clouding.) ENT exam: Present: normal exam Neck exam: Present: normal inspection, full ROM, other. Absent: tenderness, meningismus Respiratory exam: Present: normal lung sounds bilaterally. Absent: respiratory distress, wheezes Cardiovascular Exam: Present: regular rate, normal rhythm GI/Abdominal exam: Present: soft. Absent: distended (P), tenderness Extremities exam: Present: normal inspection, normal capillary refill. Absent: pedal edema Back exam: Present: normal inspection. Absent: full ROM, tenderness Neurological exam: Present: alert. Absent: oriented X3 (2), motor sensory deficit Skin exam: Present: warm, dry, abrasion (Forehead, nasal bridge) Course Vital Signs 03/03/18 12:33 Temperature 97.7 F Pulse Rate 61 Respiratory 20 Rate Blood Pressure 184/89 O2 Sat by Pulse 94 L Oximetry Medical Decision Making - Medical Decision Making 87-year-old male presents status post fall, head trauma, uncertain if there is loss consciousness. Workup in the emergency department reveals head CT which is negative for intracranial hemorrhage or mass effect, C-spine CT is negative for fracture or subluxation. Chest x-ray obtained, and possible right lower lobe atelectasis versus infiltrate. X-ray of the pelvis, rotated, no visualized fracture or dislocation. Patient is able to tolerate in the emergency department without pain complaints. I did discuss patient's baseline mental status with his daughter who is at bedside. He is at his baseline, he will be discharged back to the snf. Disposition Clinical Impression: Fall, Abrasion, Pneumonia Disposition: HOME SELF-CARE Condition: Fair Instructions: Fall Prevention for Older Adults (ED), Abrasion (ED), Bacterial Pneumonia (ED) Prescriptions: Levofloxacin [Levaquin] 750 mg PO DAILY 5 Days #5 tab Is patient prescribed a controlled substance at d/c from ED?: No Referrals: Sylvester Pena DO [Primary Care Provider] - 1-2 days Time of Disposition: 15:24
[2018-03-03 15:50] VITALS: BP 195/94; PULSE 66; RESP 18
== END 2018-03-03 15:53 | disposition home or self-care (01) ==
LOC: EC 12:26
DX: S00.31XA Abrasion of nose, initial encounter (principal); S00.81XA Abrasion of other part of head, initial encounter; J18.9 Pneumonia, unspecified organism; H11.32 Conjunctival hemorrhage, left eye; F03.90 Unspecified dementia, unspecified severity, without behavioral disturbance, psychotic disturbance, mood disturbance, and anxiety; H40.9 Unspecified glaucoma; Z87.891 Personal history of nicotine dependence; Z79.899 Other long term (current) drug therapy; Z23 Encounter for immunization; W19.XXXA Unspecified fall, initial encounter
CPT/HCPCS: 70450; 71045; 72125; 72170; 90471; 90715; 99285

== ENCOUNTER 2018-04-23 10:08 | Emergency (ER) | payer MEDICARE ==
[2018-04-23 10:26] VITALS: TEMP 99.5
--- NOTE | 2018-04-23 10:36 | ED ---
General Adult HPI - General Chief complaint: Weakness Stated complaint: Altered Mental Status Time Seen by Provider: 04/23/18 10:12 Source: EMS Mode of arrival: EMS Limitations: no limitations - History of Present Illness Initial comments: Dictation was produced using [employer] dictation software. please excuse any grammatical, word or spelling errors. Chief Complaint: 87-year-old male with past medical history dementia diabetes presents via EMS for alleged generalized weakness. History of Present Illness: Patient 87-year-old male. He is transferred here via EMS. EMS reports that calls made for symptoms of generalized weakness and worsening altered mental status. Patient has baseline dementia and is normally altered. EMS is unable to give detailed history or examples of what's been more altered about him. He was goes unexplained that patient is normally able to ambulate with walker independently however over the last 1-2 days he's been requiring assistance. Patient is a poor historian at this time however he does follow commands and answer questions appropriately intermittent. PHYSICAL EXAM: General Impression: Alert and oriented x3, not in acute distress HEENT: Normocephalic atraumatic, extra-ocular movements intact, pupils equal and reactive to light bilaterally, mucous membranes moist. Cardiovascular: Heart regular rate and rhythm, S1&S2 audible, no murmurs, rubs or gallops Chest: Lungs clear to auscultation bilaterally, no rhonchi, no wheeze, no rales Abdomen: Bowel sounds present, abdomen soft, non-tender, non-distended, no organomegaly Musculoskeletal: Pulses present and equal in all extremities, no peripheral edema Motor: no focal deficits noted Neurological: CN II-XII grossly intact, no focal motor or sensory deficits noted Skin: Intact with no visualized rashes Psych: Normal affect and mood, tangential speech, pleasant ED course: 87-year-old male with chief complaint of worsening weakness and worsening mental status. Vital signs upon arrival shows oxygen of 90 on room air, blood pressure 190/97, rest of vital signs within acceptable limits. Laboratory evaluation obtained. CBC, blood gases, metabolic panel, urinalysis all unremarkable. Rapid urine drug screen negative. Computed tomography scan of the brain was obtained showing no acute processes. Chest x-rays obtained showing bibasilar infiltrates which could reflect pneumonia. Cardiac sounds are patient not have any history of coughing. Patient is hemodynamically stable. At this point highly doubt pneumonia. Patient given cleared. I will give him prescription for azithromycin for possible early pneumonia. Patient hemodynamically stable. Patient clear for discharge. Patient continues to be pleasant while observed in emergency department. Patient clear for discharge. EKG interpretation: Ventricular rate 71, normal sinus rhythm, LA interval 182, QS 132, QTc 434. No LA prolongation, no QTC prolongation, no ST or T-wave changes noted. EKG compared to 06/06/2017 showing no changes. Overall, this EKG is unremarkable - Related Data Home Medications Medication Instructions Recorded Confirmed Brimonidine Tartrate [Alphagan P 1 drops BOTH EYES BID 03/25/16 04/23/18 0.15% Ophth Soln] Latanoprost [Xalatan 0.005%] 1 drop BOTH EYES HS 03/25/16 04/23/18 Multivitamin [Men's Multi-Vitamin] 1 tab PO DAILY 03/25/16 04/23/18 Dorzolamide 2% [Trusopt 2%] 1 drops BOTH EYES BID 06/06/17 04/23/18 Nystatin 100,000 Unit/gm Powd 1 applic TOPICAL BID PRN 03/03/18 04/23/18 [Mycostatin Powder] Zinc Oxide [Desitin] 1 applic TOPICAL DIRECTED 03/03/18 04/23/18 Aspirin EC [Ecotrin] 650 mg PO Q12H PRN 04/23/18 04/23/18 Timolol 0.5% Ophth Soln [Timoptic 1 drop BOTH EYES BID 04/23/18 04/23/18 0.5% Ophth Soln] Previous Rx's Medication Instructions Recorded Azithromycin [Zithromax Z-pack] 0 mg PO DIRECTED #6 tab 04/23/18 Allergies Allergy/AdvReac Type Severity Reaction Status Date / Time No Known Allergies Allergy Verified 04/23/18 10:35 Review of Systems ROS Statement: Those systems with pertinent positive or pertinent negative responses have been documented in the HPI. ROS Other: All systems not noted in ROS Statement are negative. Past Medical History Past Medical History: Dementia, Diabetes Mellitus Additional Past Medical History / Comment(s): glaucoma History of Any Multi-Drug Resistant Organisms: None Reported Additional Past Surgical History / Comment(s): pt did not remember his surgery Past Psychological History: No Psychological Hx Reported Smoking Status: Former smoker Past Alcohol Use History: Daily Past Drug Use History: None Reported General Exam Limitations: no limitations Course Vital Signs 04/23/18 04/23/18 04/23/18 10:24 10:30 11:30 Temperature 99.5 F Pulse Rate 78 77 Respiratory 18 17 19 Rate Blood Pressure 198/97 187/77 182/79 O2 Sat by Pulse 90 L 99 94 L Oximetry 04/23/18 04/23/18 04/23/18 12:00 12:30 13:00 Temperature Pulse Rate 82 Respiratory 19 Rate Blood Pressure 178/74 186/83 178/85 O2 Sat by Pulse 94 L 94 L 96 Oximetry 04/23/18 13:30 Temperature Pulse Rate 77 Respiratory 19 Rate Blood Pressure 193/97 O2 Sat by Pulse 95 Oximetry Medical Decision Making - Lab Data Result diagrams: 04/23/18 10:24 04/23/18 10:24 Lab Results 04/23/18 04/23/18 04/23/18 Range/Units 10:24 10:24 10:24 WBC 10.6 (3.8-10.6) k/uL RBC 4.32 (4.30-5.90) m/uL Hgb 12.2 L (13.0-17.5) gm/dL Hct 38.8 L (39.0-53.0) % MCV 89.8 (80.0-100.0) fL MCH 28.2 (25.0-35.0) pg MCHC 31.4 (31.0-37.0) g/dL RDW 13.2 (11.5-15.5) % Plt Count 280 (150-450) k/uL Neutrophils % 67 % Lymphocytes % 22 % Monocytes % 8 % Eosinophils % 1 % Basophils % 0 % Neutrophils # 7.1 (1.3-7.7) k/uL Lymphocytes # 2.3 (1.0-4.8) k/uL Monocytes # 0.8 (0-1.0) k/uL Eosinophils # 0.1 (0-0.7) k/uL Basophils # 0.0 (0-0.2) k/uL VBG pH 7.40 (7.31-7.41) VBG pCO2 48 (37-51) mmHg VBG HCO3 29 H (24-28) mmol/L Sodium 139 (137-145) mmol/L Potassium 4.2 (3.5-5.1) mmol/L Chloride 102 (98-107) mmol/L Carbon Dioxide 29 (22-30) mmol/L Anion Gap 8 mmol/L BUN 17 (9-20) mg/dL Creatinine 0.55 L (0.66-1.25) mg/dL Est GFR (CKD-EPI)AfAm >90 (>60 ml/min/1.73 sqM) Est GFR (CKD-EPI)NonAf >90 (>60 ml/min/1.73 sqM) Glucose 110 H (74-99) mg/dL Calcium 9.4 (8.4-10.2) mg/dL Magnesium 1.8 (1.6-2.3) mg/dL Total Bilirubin 1.1 (0.2-1.3) mg/dL AST 20 (17-59) U/L ALT 26 (21-72) U/L Alkaline Phosphatase 55 (38-126) U/L Creatine Kinase 36 L (55-170) U/L Total Protein 7.1 (6.3-8.2) g/dL Albumin 3.8 (3.5-5.0) g/dL Urine Color Urine Appearance (Clear) Urine pH (5.0-8.0) Ur Specific [place] (1.001-1.035) Urine Protein (Negative) Urine Glucose (UA) (Negative) Urine Ketones (Negative) Urine Blood (Negative) Urine Nitrite (Negative) Urine Bilirubin (Negative) Urine Urobilinogen (<2.0) mg/dL Ur Leukocyte Esterase (Negative) Urine RBC (0-5) /hpf Urine WBC (0-5) /hpf Urine Mucus (None) /hpf Urine Opiates Screen (NotDetected) Ur Oxycodone Screen (NotDetected) Urine Methadone Screen (NotDetected) Ur Propoxyphene Screen (NotDetected) Ur Barbiturates Screen (NotDetected) U Tricyclic Antidepress (NotDetected) Ur Phencyclidine Scrn (NotDetected) Ur Amphetamines Screen (NotDetected) U Methamphetamines Scrn (NotDetected) U Benzodiazepines Scrn (NotDetected) Urine Cocaine Screen (NotDetected) U Marijuana (THC) Screen (NotDetected) 04/23/18 04/23/18 Range/Units 13:16 13:16 WBC (3.8-10.6) k/uL RBC (4.30-5.90) m/uL Hgb (13.0-17.5) gm/dL Hct (39.0-53.0) % MCV (80.0-100.0) fL MCH (25.0-35.0) pg MCHC (31.0-37.0) g/dL RDW (11.5-15.5) % Plt Count (150-450) k/uL Neutrophils % % Lymphocytes % % Monocytes % % Eosinophils % % Basophils % % Neutrophils # (1.3-7.7) k/uL Lymphocytes # (1.0-4.8) k/uL Monocytes # (0-1.0) k/uL Eosinophils # (0-0.7) k/uL Basophils # (0-0.2) k/uL VBG pH (7.31-7.41) VBG pCO2 (37-51) mmHg VBG HCO3 (24-28) mmol/L Sodium (137-145) mmol/L Potassium (3.5-5.1) mmol/L Chloride (98-107) mmol/L Carbon Dioxide (22-30) mmol/L Anion Gap mmol/L BUN (9-20) mg/dL Creatinine (0.66-1.25) mg/dL Est GFR (CKD-EPI)AfAm (>60 ml/min/1.73 sqM) Est GFR (CKD-EPI)NonAf (>60 ml/min/1.73 sqM) Glucose (74-99) mg/dL Calcium (8.4-10.2) mg/dL Magnesium (1.6-2.3) mg/dL Total Bilirubin (0.2-1.3) mg/dL AST (17-59) U/L ALT (21-72) U/L Alkaline Phosphatase (38-126) U/L Creatine Kinase (55-170) U/L Total Protein (6.3-8.2) g/dL Albumin (3.5-5.0) g/dL Urine Color Yellow Urine Appearance Clear (Clear) Urine pH 7.0 (5.0-8.0) Ur Specific [place] 1.016 (1.001-1.035) Urine Protein 1+ H (Negative) Urine Glucose (UA) Negative (Negative) Urine Ketones 1+ H (Negative) Urine Blood Trace H (Negative) Urine Nitrite Negative (Negative) Urine Bilirubin Negative (Negative) Urine Urobilinogen 2.0 (<2.0) mg/dL Ur Leukocyte Esterase Negative (Negative) Urine RBC 7 H (0-5) /hpf Urine WBC <1 (0-5) /hpf Urine Mucus Rare H (None) /hpf Urine Opiates Screen Not Detected (NotDetected) Ur Oxycodone Screen Not Detected (NotDetected) Urine Methadone Screen Not Detected (NotDetected) Ur Propoxyphene Screen Not Detected (NotDetected) Ur Barbiturates Screen Not Detected (NotDetected) U Tricyclic Antidepress Not Detected (NotDetected) Ur Phencyclidine Scrn Not Detected (NotDetected) Ur Amphetamines Screen Not Detected (NotDetected) U Methamphetamines Scrn Not Detected (NotDetected) U Benzodiazepines Scrn Not Detected (NotDetected) Urine Cocaine Screen Not Detected (NotDetected) U Marijuana (THC) Screen Not Detected (NotDetected) Disposition Clinical Impression: Dementia Disposition: HOME SELF-CARE Condition: Good Prescriptions: Azithromycin [Zithromax Z-pack] 0 mg PO DIRECTED #6 tab Is patient prescribed a controlled substance at d/c from ED?: No Referrals: Sylvester Pena DO [Primary Care Provider] - 1-2 days Time of Disposition: 15:20
--- NOTE | 2018-04-23 11:03 | CT ---
EXAMINATION TYPE: CT brain wo con DATE OF EXAM: 04/23/2018 COMPARISON: 03/02/2018 HISTORY: Confusion CT DLP: 1095.4 mGycm Automated exposure control for dose reduction was used. TECHNIQUE: CT scan of the head is performed without contrast. FINDINGS: There is no acute intracranial hemorrhage or midline shift identified. Punctate subarachn oid calcification in the left frontal region is unchanged from the prior and may represent sequela of prior intrathecal contrast injection. There is diffuse ventricular and sulcal prominence consistent with diffuse age-related cerebral atrophy. There is low-attenuation in the periventricular white mat ter consistent with chronic small vessel ischemic change. The globes are intact and the visualized s inuses are clear. IMPRESSION: No acute intracranial hemorrhage or midline shift. Similar degree of diffuse age-related cerebral atrophy and chronic small vessel ischemic change in comparison to the prior of 03/02/2018.
[2018-04-23 11:07] LABS: Basophils % (A) 0 %; Eosinophils # (A) 0.1 k/uL (0-0.7); Eosinophils % (A) 1 %; HCT 38.8 % (39.0-53.0); HGB 12.2 gm/dL (13.0-17.5); Lymphocytes # (A) 2.3 k/uL (1.0-4.8); Lymphocytes % (A) 22 %; MCH 28.2 pg (25.0-35.0); MCHC 31.4 g/dL (31.0-37.0); MCV 89.8 fL (80.0-100.0); Mean Platelet Volume 6.1; Monocytes # (A) 0.8 k/uL (0-1.0); Monocytes % (A) 8 %; Neutrophils # (A) 7.1 k/uL (1.3-7.7); Neutrophils % (A) 67 %; Platelet Count 280 k/uL (150-450); RBC 4.32 m/uL (4.30-5.90); RDW 13.2 % (11.5-15.5); WBC 10.6 k/uL (3.8-10.6)
[2018-04-23 11:19] LABS: ALT 26 U/L (21-72); AST 20 U/L (17-59); Albumin 3.8 g/dL (3.5-5.0); Alkaline Phosphatase 55 U/L (38-126); Anion Gap 8 mmol/L; Blood Urea Nitrogen 17 mg/dL (9-20); Calcium 9.4 mg/dL (8.4-10.2); Carbon Dioxide 29 mmol/L (22-30); Chloride 102 mmol/L (98-107); Creatine Kinase 36 U/L (55-170); Glucose 110 mg/dL (74-99); Magnesium 1.8 mg/dL (1.6-2.3); Potassium 4.2 mmol/L (3.5-5.1); Sodium 139 mmol/L (137-145); Total Bilirubin 1.1 mg/dL (0.2-1.3); Total Protein 7.1 g/dL (6.3-8.2)
[2018-04-23 11:21] LABS: VBG PH 7.4 (7.31-7.41)
[2018-04-23 14:12] LABS: Appearance,Urine Clear (Clear); Bilirubin,Urine Negative (Negative); Blood,Urine Trace (Negative); Color,Urine Yellow; Glucose,Urine (UA) Negative (Negative); Ketones,Urine 1+ (Negative); Leukocyte Esterase,Urine Negative (Negative); Mucus,Urine Rare /hpf; Nitrite,Urine Negative (Negative); Protein,Urine 1+ (Negative); RBC,Urine 7 /hpf (0-5); Specific Gravity,Urine 1.016 (1.001-1.035); WBC,Urine <1 /hpf (0-5)
[2018-04-23 14:21] LABS: Amphetamine Screen,Urine Not Detected (NotDetected); Benzodiazepines Screen,Urine Not Detected (NotDetected); Cocaine Screen,Urine Not Detected (NotDetected); Opiate Screen,Urine Not Detected (NotDetected); Phencyclidine Screen,Urine Not Detected (NotDetected); Tricyclic Antidepressant,Urine Not Detected (NotDetected); Urn Cannabinoid Scrn Not Detected (NotDetected)
[2018-04-23 14:22] LABS: Barbiturate Screen,Urine Not Detected (NotDetected); Methadone Screen, Urine Not Detected (NotDetected); Oxycodone Screen, Urine Not Detected (NotDetected)
--- NOTE | 2018-04-23 15:16 | XR ---
EXAMINATION TYPE: XR chest 1V portable DATE OF EXAM: 04/23/2018 COMPARISON: 03/03/2018 INDICATION: Altered mental status TECHNIQUE: Single frontal view of the chest is obtained. FINDINGS: The heart size is normal. The pulmonary vasculature is normal. Subtle infiltrate may be at the right base. Correlate for atelectasis or early pneumonia. Mild subseg mental atelectasis appears to be present at the left base. IMPRESSION: 1. Mild bibasilar infiltrates. Correlate for subsegmental atelectasis or pneumonia. Follow-up studies can be performed as clinically indicated.
[2018-04-23 15:29] VITALS: BP 187/95; PULSE 82; RESP 18
== END 2018-04-23 16:37 | disposition home or self-care (01) ==
LOC: EC 10:08
DX: F03.90 Unspecified dementia, unspecified severity, without behavioral disturbance, psychotic disturbance, mood disturbance, and anxiety (principal); R53.1 Weakness; R41.82 Altered mental status, unspecified; R91.8 Other nonspecific abnormal finding of lung field; H40.9 Unspecified glaucoma; Z87.891 Personal history of nicotine dependence; Z79.899 Other long term (current) drug therapy
CPT/HCPCS: 36415; 70450; 71045; 80053; 80306; 81001; 82550; 82803; 83735; 85025; 87040; 87086; 93005; 99285

== ENCOUNTER 2018-04-23 20:38 | Inpatient (IN) | payer MEDICARE ==
[2018-04-23] MEDS ORDERED: AZITHROMYCIN 500 MG in SODIUM CHLORIDE 0.9% 250 ML IVPB STA (20:47)
--- NOTE | 2018-04-23 20:50 | ED ---
General Adult HPI - General Stated complaint: Altered LLC Time Seen by Provider: 04/23/18 20:41 Source: EMS Mode of arrival: EMS Limitations: altered mental status - History of Present Illness Initial comments: Dictation was produced using [employer] dictation software. please excuse any grammatical, word or spelling errors. Chief Complaint: 87-year-old male was seen by me earlier today brought back to emergency department for generalized weakness. History of Present Illness: 87-year-old male male. He was seen by me earlier today. Patient lives at [facility]. Seen earlier today for evaluation. Patient was discharged by myself after negative workup. Patient did have abnormal findings on chest x-ray however they did not correlate clinically. Patient was seen back at the long-term was found to be more weak and unable to get out of bed. Patient is a poor historian. EMS reports that [facility] does not have the resources and capability to take care of him. The ROS documented in this emergency department record has been reviewed and confirmed by me. Those systems with pertinent positive or negative responses have been documented in the HPI. All other systems are other negative and/or noncontributory. PHYSICAL EXAM: General Impression: Alert and oriented x3, not in acute distress HEENT: Normocephalic atraumatic, extra-ocular movements intact, pupils equal and reactive to light bilaterally, mucous membranes moist. Cardiovascular: Heart regular rate and rhythm, S1&S2 audible, no murmurs, rubs or gallops Chest: Lungs clear to auscultation bilaterally, no rhonchi, no wheeze, no rales Abdomen: Bowel sounds present, abdomen soft, non-tender, non-distended, no organomegaly Musculoskeletal: Pulses present and equal in all extremities, no peripheral edema Motor: Power 5/5 bilaterally, no focal deficits noted Neurological: CN II-XII grossly intact, no focal motor or sensory deficits noted Skin: Intact with no visualized rashes Psych: Normal affect and mood ED course: 87-year-old male presents for generalized weakness. Vital signs upon arrival are within acceptable limits. Patient appears to be stable compared to when he was seen earlier today. Patient given azithromycin and ceftriaxone. We'll admit patient for pneumonia and generalized weakness. - Related Data Home Medications Medication Instructions Recorded Confirmed Brimonidine Tartrate [Alphagan P 1 drops BOTH EYES BID 03/25/16 04/23/18 0.15% Ophth Soln] Latanoprost [Xalatan 0.005%] 1 drop BOTH EYES HS 03/25/16 04/23/18 Multivitamin [Men's Multi-Vitamin] 1 tab PO DAILY 03/25/16 04/23/18 Dorzolamide 2% [Trusopt 2%] 1 drops BOTH EYES BID 06/06/17 04/23/18 Nystatin 100,000 Unit/gm Powd 1 applic TOPICAL BID PRN 03/03/18 04/23/18 [Mycostatin Powder] Zinc Oxide [Desitin] 1 applic TOPICAL DIRECTED 03/03/18 04/23/18 Acetaminophen Tab [Tylenol] 500 mg PO Q8H 04/23/18 04/23/18 Azithromycin [Zithromax Z-pack] See Taper PO DAILY 04/23/18 04/23/18 Timolol 0.5% Ophth Soln [Timoptic 1 drop BOTH EYES BID 04/23/18 04/23/18 0.5% Ophth Soln] Allergies Allergy/AdvReac Type Severity Reaction Status Date / Time No Known Allergies Allergy Verified 04/23/18 20:46 Review of Systems ROS Statement: Those systems with pertinent positive or pertinent negative responses have been documented in the HPI. ROS Other: All systems not noted in ROS Statement are negative. Past Medical History Past Medical History: Dementia, Diabetes Mellitus Additional Past Medical History / Comment(s): glaucoma History of Any Multi-Drug Resistant Organisms: None Reported Past Surgical History: Unable to Obtain Additional Past Surgical History / Comment(s): pt did not remember his surgery Past Psychological History: No Psychological Hx Reported Smoking Status: Former smoker Past Alcohol Use History: Unable to Obtain Past Drug Use History: None Reported General Exam Limitations: altered mental status Course Vital Signs 04/23/18 20:43 Temperature 100.9 F H Pulse Rate 102 H Respiratory 18 Rate Blood Pressure 199/99 O2 Sat by Pulse 94 L Oximetry Disposition Clinical Impression: Generalized weakness Disposition: ADMITTED IP TO THIS HOSP Condition: Fair Referrals: Sylvester Pena DO [Primary Care Provider] - 1-2 days Decision Time: 21:27
[2018-04-23] MEDS ORDERED: NALOXONE 0.4 MG/ML 1 ML VIAL IV PRN (21:22)
[2018-04-23] MEDS ORDERED: ONDANSETRON 4 MG/2 ML VIAL IVP PRN (21:22)
[2018-04-23] MEDS ORDERED: NYSTATIN 100,000 UNIT/GM POWD 15 GM TOPICAL PRN (21:24)
[2018-04-23] MEDS ORDERED: AZITHROMYCIN 500 MG in SODIUM CHLORIDE 0.9% 250 ML IVPB ONE (23:15)
[2018-04-23] MEDS: SODIUM CHLORIDE 0.9% 1,000 ML IV SCH (23:51)
[2018-04-23] MEDS: ZINC OXIDE 20% OINT 28.4 GM TUBE TOPICAL SCH (23:52)
[2018-04-24 07:10] LABS: Glucose,Whole Blood 95 mg/dL (75-99)
[2018-04-24] MEDS: MULTIVITAMINS, THERA 1 EACH TAB PO SCH (08:11)
[2018-04-24] MEDS: TIMOLOL 0.5% OPHTH DROPS 5 ML BTL BOTH EYES SCH ×2 (08:12→20:14)
[2018-04-24] MEDS: DORZOLAMIDE HCL 2% DROPS 10 ML BTL BOTH EYES SCH ×2 (08:13→20:15)
[2018-04-24] MEDS ORDERED: PANTOPRAZOLE 40 MG/10 ML VIAL IV SCH (09:00)
[2018-04-24 12:22] LABS: Glucose,Whole Blood 109 mg/dL (75-99)
[2018-04-24] MEDS: ACETAMINOPHEN TAB 325 MG TAB PO PRN (14:49)
[2018-04-24 15:18] LABS: Basophils % (A) 0 %; Eosinophils # (A) 0.1 k/uL (0-0.7); Eosinophils % (A) 1 %; HCT 39.6 % (39.0-53.0); HGB 12.7 gm/dL (13.0-17.5); Lymphocytes # (A) 1.8 k/uL (1.0-4.8); Lymphocytes % (A) 14 %; MCH 29.2 pg (25.0-35.0); MCHC 32.1 g/dL (31.0-37.0); MCV 91.2 fL (80.0-100.0); Monocytes # (A) 0.8 k/uL (0-1.0); Monocytes % (A) 6 %; Neutrophils # (A) 10.4 k/uL (1.3-7.7); Neutrophils % (A) 78 %; Platelet Count 252 k/uL (150-450); RBC 4.35 m/uL (4.30-5.90); RDW 13.1 % (11.5-15.5); WBC 13.4 k/uL (3.8-10.6)
[2018-04-24] MEDS: amLODIPine 5 MG TAB PO SCH (15:29)
[2018-04-24 15:39] LABS: ALT 24 U/L (21-72); AST 19 U/L (17-59); Albumin 3.6 g/dL (3.5-5.0); Alkaline Phosphatase 66 U/L (38-126); Anion Gap 12 mmol/L; Blood Urea Nitrogen 17 mg/dL (9-20); Calcium 9.1 mg/dL (8.4-10.2); Carbon Dioxide 25 mmol/L (22-30); Chloride 101 mmol/L (98-107); Glucose 124 mg/dL (74-99); Sodium 138 mmol/L (137-145); Total Protein 6.8 g/dL (6.3-8.2); Uric Acid 3.7 mg/dL (3.5-8.5)
--- NOTE | 2018-04-24 15:39 | HP ---
HISTORY AND PHYSICAL DATE OF SERVICE: 04/24/2018 CHIEF COMPLAINTS: Change in mental status and fever. HISTORY OF PRESENT ILLNESS: This is an 87-year-old gentleman with a past medical history of multiple medical problems including history of dementia, history of diabetes and glaucoma being followed by Dr. Pena in the outpatient setting, living in [facility]. The patient is having fever and patient is confused and according to the caregiver, patient is not his usual self. The patient was taken to [facility] yesterday in the ER and evaluated and baseline evaluation were apparently normal. Patient was returned back to the [facility], but then the patient again sent back to the ER for a second time because of the change in mental status and persistent mental status and patient admitted for further evaluation. Patient running fever also today, just now currently the fever is noted to be 102.3. There is no history any headache, loss of consciousness or seizures. The patient is only able to give a very sketchy history. The patient is complaining of bilateral knee pain, also. PAST MEDICAL HISTORY: History of dementia, diabetes mellitus type 2, history of glaucoma. MEDICATIONS PRIOR TO ADMISSION: 1. Zinc oxide 1 application daily. 2. Timolol. 3. Nystatin. 4. Multivitamin. 5. multisystem at the present time. 6. Zithromax. 7. Tylenol. ALLERGIES: None. FAMILY HISTORY, SOCIAL HISTORY, REVIEW OF SYSTEMS: Could not be taken because the patient has change in mental status, no history of smoking per chart. PHYSICAL EXAM: Patient is conscious, confused, pulse 69, blood pressure 187/80, respiration 20, temperature 102.2, pulse ox 91 percent on room air. HEENT: Conjunctivae normal, oral mucosa moist. Neck is no jugular venous distention. No lymph nodes. CARDIOVASCULAR SYSTEM: S1, S2. RESPIRATORY: Breath sounds diminished in the bases. No rhonchi. No crackles. ABDOMEN: Soft, nontender. No mass palpable. LEGS: Knee joints are slightly tender and painful, right more the left. Movements are painful. NERVOUS SYSTEM: Higher functions as mentioned earlier, moves all 4 limbs. LYMPHATICS: No lymphadenopathy. SKIN: No ulcer, rash or bleeding. JOINTS: No active joint as mentioned earlier. LABS: Glucose 101. Other labs are noted. ASSESSMENT: 1. Fever for evaluation, rule out urinary tract infection, possible arthritis, rule out acute gouty attack right knee more than the left knee. 2. Dementia. 3. Diabetes mellitus type 2. 4. Glaucoma. 5. Change in mental status, metabolic encephalopathy, acute on chronic. 6. FULL CODE. RECOMMENDATION: In this 87 gentleman who presented with multiple complex medical issues, will monitor the patient closely, continue with the current management and symptomatic treatment. Will initiate broad-spectrum IV antibiotics. Otherwise, I would also recommend sed rate, uric acid, and CRP. I would also treat the patient symptomatically, also obtain orthopedic evaluation as well. The prognosis guarded because of multiple complex medical issues. Further recommendations to follow. A copy will be forwarded to Dr. Pena, who is the primary physician. See orders for details. Obtain the cultures as well. MMODL / IJN: [id number] / [place]
[2018-04-24 16:35] LABS: Glucose,Whole Blood 128 mg/dL (75-99)
[2018-04-24 17:02] LABS: Erythrocyte Sedimentation Rate 92 mm/hr (0-15)
--- NOTE | 2018-04-24 18:02 | XR ---
Bilateral knees. 3 views each knee. History bilateral knee pain. Limited range of motion. Comparison none. FINDINGS: There is narrowing of the medial joint space of the right knee. There is some erosion on the articula r surface of the right medial femoral condyle. There is calcification of the menisci of the right kne e. There is spurring at the right tibial tubercle. There is right knee joint effusion. Left knee shows calcification of the menisci. There is left knee joint effusion. There is spurring of the femoral and tibial condyles of both knees. IMPRESSION: Bilateral knee joint effusions. Bilateral spurring at the tibial tubercles. 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 Erosion of the articular surface of the right medial femoral condyle. No fracture seen.
[2018-04-24 20:05] LABS: Hemoglobin A1C 6.2 % (4.0-6.0)
[2018-04-24] MEDS: LATANOPROST 0.005% OPHTH DROPS 2.5 ML BTL BOTH EYES SCH (20:13)
[2018-04-24] MEDS: BRIMONIDINE TARTRATE 0.2% DROPS 5 ML BTL BOTH EYES SCH (20:14)
[2018-04-24 20:41] LABS: Glucose,Whole Blood 140 mg/dL (75-99)
[2018-04-24] MEDS: SODIUM CHLORIDE 0.9% 1,000 ML IV SCH (23:01)
[2018-04-25] MEDS: ZINC OXIDE 20% OINT 28.4 GM TUBE TOPICAL SCH ×2 (00:11→22:38)
--- NOTE | 2018-04-25 08:47 | P.CNOR ---
<EduarnikkiSarai J - Last Filed: 04/25/18 09:32> History of Present Illness - HPI Consult date: 04/25/18 Consult reason: joint pain (Bilateral knee pain) History of present illness: The patient is a 87-year-old male with a medical history of diabetes and dementia who presented to the emergency department on 04/23/2018 with increased weakness and altered mental status. Chest x-ray was taken and possible early pneumonia and was found. He was started on Zithromax and discharged back to his residence at [facility]. However, later that day his confusion worsened and he was brought back to the emergency department. He was admitted to internal medicine for further evaluation of his generalized weakness and possible pneumonia. The patient was found to have bilateral knee pain and swelling and orthopedics was consulted for further evaluation. He is currently on Rocephin and Zithromax for possible UTI or pneumonia. There is also a question of gout or septic arthritis of the knees. CRP and sed rate are elevated as well as a elevated white count yesterday. This morning's labs are still pending. He has had fevers since admission as well. The patient is a poor historian at this time due to his confusion. He states he has pain in his knees. The patient denies pain in his hips, arms, neck and back at this time. The nursing staff states his confusion has not improved since admission. Upon questioning where he is, [place]. Review of Systems ROS unobtainable: due to mental status Past Medical History Past Medical History: Dementia, Diabetes Mellitus Additional Past Medical History / Comment(s): glaucoma History of Any Multi-Drug Resistant Organisms: None Reported Past Surgical History: Unable to Obtain Additional Past Surgical History / Comment(s): pt did not remember his surgery Past Psychological History: No Psychological Hx Reported Smoking Status: Unknown if ever smoked Past Alcohol Use History: Unable to Obtain Past Drug Use History: None Reported Medications and Allergies Home Medications Medication Instructions Recorded Confirmed Type Brimonidine Tartrate [Alphagan P 1 drops BOTH EYES BID 03/25/16 04/23/18 History 0.15% Ophth Soln] Latanoprost [Xalatan 0.005%] 1 drop BOTH EYES HS 03/25/16 04/23/18 History Multivitamin [Men's Multi-Vitamin] 1 tab PO DAILY 03/25/16 04/23/18 History Dorzolamide 2% [Trusopt 2%] 1 drops BOTH EYES BID 06/06/17 04/23/18 History Nystatin 100,000 Unit/gm Powd 1 applic TOPICAL BID PRN 03/03/18 04/23/18 History [Mycostatin Powder] Zinc Oxide [Desitin] 1 applic TOPICAL DIRECTED 03/03/18 04/23/18 History Acetaminophen Tab [Tylenol] 500 mg PO Q8H 04/23/18 04/23/18 History Azithromycin [Zithromax Z-pack] See Taper PO DAILY 04/23/18 04/23/18 History Timolol 0.5% Ophth Soln [Timoptic 1 drop BOTH EYES BID 04/23/18 04/23/18 History 0.5% Ophth Soln] Allergies Allergy/AdvReac Type Severity Reaction Status Date / Time No Known Allergies Allergy Verified 04/23/18 20:46 Physical Examination The patient is an 87 year old male that is no acute distress. He is alert and oriented x1. The patient's head is normocephalic and atraumatic. Exam of the cervical spine reveals no pain upon palpation or range of motion. Exam of the bilateral upper extremities reveal no obvious deformities or pain upon range of motion. Exam of the left lower extremity reveals a large knee effusion. There is no erythema or open wounds to the knee or lower leg. There is severe pain to any movement of the leg. The patient could not tolerate passive range of motion of the knee or lifting the leg off the bed. Exam of the right lower extremity reveals a moderate knee effusion. There is no erythema or open wounds to the knee or lower leg. The patient could not tolerate passive range of motion of the knee were lifting the leg off the bed. Bilateral calves are soft and nontender. Patient is able to wiggle his toes without difficulty. Neurological and circulatory status is intact. Results - Labs Labs: Abnormal Lab Results - Last 24 Hours (Table) 04/23/18 04/24/18 04/24/18 Range/Units 10:24 12:20 14:59 WBC 13.4 H (3.8-10.6) k/uL Hgb 12.7 L (13.0-17.5) gm/dL Neutrophils # 10.4 H (1.3-7.7) k/uL ESR 92 H (0-15) mm/hr Creatinine (0.66-1.25) mg/dL Glucose (74-99) mg/dL POC Glucose (mg/dL) 109 H (75-99) mg/dL Hemoglobin A1c 6.2 H (4.0-6.0) % C-Reactive Protein (<10.0) mg/L 04/24/18 04/24/18 04/24/18 Range/Units 14:59 16:32 20:40 WBC (3.8-10.6) k/uL Hgb (13.0-17.5) gm/dL Neutrophils # (1.3-7.7) k/uL ESR (0-15) mm/hr Creatinine 0.52 L (0.66-1.25) mg/dL Glucose 124 H (74-99) mg/dL POC Glucose (mg/dL) 128 H 140 H (75-99) mg/dL Hemoglobin A1c (4.0-6.0) % C-Reactive Protein 202.0 H (<10.0) mg/L H & H 04/24/18 Range/Units 14:59 Hgb 12.7 L (13.0-17.5) gm/dL Hct 39.6 (39.0-53.0) % Result Diagrams: 04/24/18 14:59 04/24/18 14:59 - Diagnostic results Knee x-ray: image reviewed (Bilateral knee x-rays dated 04/24/2017 reveals bilateral knee effusions. 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 No acute fracture seen.) Assessment and Plan (1) Diabetes mellitus Current Visit: Yes Status: Acute Code(s): E11.9 - TYPE 2 DIABETES MELLITUS WITHOUT COMPLICATIONS SNOMED Code(s): 98102892 (2) Knee pain, bilateral Current Visit: Yes Status: Acute Code(s): M25.561 - PAIN IN RIGHT KNEE; M25.562 - PAIN IN LEFT KNEE SNOMED Code(s): 17508390 (3) Bilateral knee effusions Current Visit: Yes Status: Acute Code(s): M25.461 - EFFUSION, RIGHT KNEE; M25.462 - EFFUSION, LEFT KNEE SNOMED Code(s): 978089100 (4) Generalized weakness Current Visit: Yes Status: Acute Code(s): R53.1 - WEAKNESS SNOMED Code(s) : 05258193 (5) Dementia Current Visit: No Status: Acute Code(s): F03.90 - UNSPECIFIED DEMENTIA WITHOUT BEHAVIORAL DISTURBANCE SNOMED Code(s): 07196260 Plan: The clinical and x-ray findings were discussed with the nursing staff and Dr. Huynh. No family is at the bedside at this time. Due to the patient's altered mental status, a UA should be obtained via straight cath due to his incontinence to rule out UTI. If the patient's UA is not significant for infection, we will perform knee aspirations to rule out septic arthritis. Bilateral knee aspirations may be needed to relieve his pain otherwise. Continue antibiotics per internal medicine. The patient appears to be comfortable while laying in bed, continue Tylenol for pain control and fever reduction. We will continue to follow patient closely and make further recommendations as needed. <Ken Huynh - Last Filed: 04/25/18 19:32> Results - Labs Labs: Abnormal Lab Results - Last 24 Hours (Table) 04/23/18 04/24/18 04/25/18 Range/Units 10:24 20:40 07:36 WBC (3.8-10.6) k/uL Hgb (13.0-17.5) gm/dL MCHC (31.0-37.0) g/dL Neutrophils # (1.3-7.7) k/uL Monocytes # (0-1.0) k/uL Creatinine (0.66-1.25) mg/dL Glucose (74-99) mg/dL POC Glucose (mg/dL) 140 H 113 H (75-99) mg/dL Hemoglobin A1c 6.2 H (4.0-6.0) % Urine Protein (Negative) Urine Ketones (Negative) Urine Blood (Negative) 04/25/18 04/25/18 04/25/18 Range/Units 09:30 09:30 10:54 WBC 12.5 H (3.8-10.6) k/uL Hgb 12.2 L (13.0-17.5) gm/dL MCHC 30.2 L (31.0-37.0) g/dL Neutrophils # 8.9 H (1.3-7.7) k/uL Monocytes # 1.1 H (0-1.0) k/uL Creatinine 0.56 L (0.66-1.25) mg/dL Glucose 113 H (74-99) mg/dL POC Glucose (mg/dL) (75-99) mg/dL Hemoglobin A1c (4.0-6.0) % Urine Protein 1+ H (Negative) Urine Ketones 2+ H (Negative) Urine Blood Small H (Negative) 04/25/18 04/25/18 Range/Units 12:24 16:56 WBC (3.8-10.6) k/uL Hgb (13.0-17.5) gm/dL MCHC (31.0-37.0) g/dL Neutrophils # (1.3-7.7) k/uL Monocytes # (0-1.0) k/uL Creatinine (0.66-1.25) mg/dL Glucose (74-99) mg/dL POC Glucose (mg/dL) 122 H 119 H (75-99) mg/dL Hemoglobin A1c (4.0-6.0) % Urine Protein (Negative) Urine Ketones (Negative) Urine Blood (Negative) Microbiology - Last 24 Hours (Table) 04/24/18 14:59 Blood Culture - Preliminary Blood No Growth after 24 hours 04/25/18 10:54 Urine Culture - Preliminary Urine,Catheterized H & H 04/24/18 04/25/18 Range/Units 14:59 09:30 Hgb 12.7 L 12.2 L (13.0-17.5) gm/dL Hct 39.6 40.3 (39.0-53.0) % Result Diagrams: 04/25/18 09:30 04/25/18 09:30 Assessment and Plan Plan: Discussed with Nitin Cummings and agree with above. Patient was also subsequently seen and examined by myself. He is pleasantly interactive but obviously confused. Randomly offers sentence fragments and partial thoughts, unrelated to the current conversation. Labs and hx reviewed. Both knees show gross effusion R>L but not erythematous, no calor. Moderately severe TTP and pain with PROM. Agree with aspiration. Right knee aspirated (see note): slightly cloudy, no gross purulence. Will await labs. Continue present care. Ken Huynh D.O. [facility]
[2018-04-25] MEDS: BRIMONIDINE TARTRATE 0.2% DROPS 5 ML BTL BOTH EYES SCH ×2 (09:15→21:50)
[2018-04-25] MEDS: DORZOLAMIDE HCL 2% DROPS 10 ML BTL BOTH EYES SCH ×2 (09:15→21:51)
[2018-04-25] MEDS: MULTIVITAMINS, THERA 1 EACH TAB PO SCH (09:15)
[2018-04-25] MEDS: PANTOPRAZOLE 40 MG TABLET PO SCH (09:15)
[2018-04-25] MEDS: TIMOLOL 0.5% OPHTH DROPS 5 ML BTL BOTH EYES SCH ×2 (09:15→21:50)
[2018-04-25] MEDS: amLODIPine 5 MG TAB PO SCH (09:15)
[2018-04-25] MEDS ORDERED: LIDOCAINE 1% INJ 10MG/ML (20 ML MDV) SQ ONE (09:27)
[2018-04-25 10:29] LABS: Basophils % (A) 0 %; Eosinophils % (A) 0 %; HCT 40.3 % (39.0-53.0); HGB 12.2 gm/dL (13.0-17.5); Lymphocytes # (A) 2.2 k/uL (1.0-4.8); Lymphocytes % (A) 18 %; MCHC 30.2 g/dL (31.0-37.0); MCV 92.7 fL (80.0-100.0); Mean Platelet Volume 7.4; Monocytes # (A) 1.1 k/uL (0-1.0); Monocytes % (A) 8 %; Neutrophils # (A) 8.9 k/uL (1.3-7.7); Neutrophils % (A) 71 %; Platelet Count 278 k/uL (150-450); RBC 4.35 m/uL (4.30-5.90); RDW 13.3 % (11.5-15.5); WBC 12.5 k/uL (3.8-10.6)
[2018-04-25 10:32] LABS: Anion Gap 9 mmol/L; Blood Urea Nitrogen 20 mg/dL (9-20); Calcium 9.3 mg/dL (8.4-10.2); Carbon Dioxide 28 mmol/L (22-30); Chloride 103 mmol/L (98-107); Glucose 113 mg/dL (74-99); Potassium 4.1 mmol/L (3.5-5.1); Sodium 140 mmol/L (137-145)
[2018-04-25 11:21] LABS: Appearance,Urine Clear (Clear); Bilirubin,Urine Negative (Negative); Blood,Urine Small (Negative); Color,Urine Yellow; Glucose,Urine (UA) Negative (Negative); Ketones,Urine 2+ (Negative); Leukocyte Esterase,Urine Negative (Negative); Nitrite,Urine Negative (Negative); Protein,Urine 1+ (Negative); RBC,Urine 4 /hpf (0-5); Specific Gravity,Urine 1.018 (1.001-1.035); Urobilinogen,Urine <2.0 mg/dL (<2.0); WBC,Urine <1 /hpf (0-5)
[2018-04-25 12:00] LABS: Glucose,Whole Blood 113 mg/dL (75-99)
[2018-04-25 12:26] LABS: Glucose,Whole Blood 122 mg/dL (75-99)
[2018-04-25 16:59] LABS: Glucose,Whole Blood 119 mg/dL (75-99)
--- NOTE | 2018-04-25 19:40 | P.PCN ---
Date of Procedure: 04/25/18 Preoperative Diagnosis: Right knee effusion with altered mental status Postoperative Diagnosis: Right knee effusion with altered mental status Procedure(s) Performed: Right knee arthrocentesis Anesthesia: none Surgeon: Ken Huynh Estimated Blood Loss (ml): 0 Indications for Procedure: Patient admitted with altered mental status, fevers of unknown origin and bilateral knee pain. Patient has a history of gout but cannot rule out septic arthritis given the patient's mental status. Recommended aspiration for both diagnostic benefit and sympathetic relief. Operative Findings: Approx 10cc of slightly cloudy, yellow fluid obtained. No gross purulence. Description of Procedure: He right knee was prepped with chlorhexidine and alcohol. Utilizing aseptic technique, an arthrocentesis was performed from the superolateral position using 18-gauge needle. A few cc of clear yellow fluid was obtained but the patient experienced pain and would not relax his leg. The needle was withdrawn. An anteromedial/parapatellar approach was then utilized with the same technique using a clean needle. Approximately 10 mL of clear, slightly cloudy, yellow fluid was withdrawn. The patient tolerated this well. Both sites were covered with sterile adhesive dressings. The fluid was sent for cell count, Gram stain, crystals and cultures.
[2018-04-25 19:55] LABS: Glucose,Whole Blood 127 mg/dL (75-99)
[2018-04-25 20:35] LABS: Appearance,BF Cloudy; Color,BF Yellow; Nucleated Cells, Body Fluid 22900 /uL; RBC, Body Fluid 400 /uL
[2018-04-25 20:37] LABS: Mononuclear WBC,Body Fluid 7 %; Polynuclear WBC,Body Fluid 93 %; Total Cells Counted,Body Fluid 100
--- NOTE | 2018-04-25 21:25 | PN ---
PROGRESS NOTE DATE OF SERVICE: 04/25/2018 This 87-year-old gentleman who was admitted with fever and also complaining of bilateral knee pains, right more the left with some knee effusions also. Orthopedic surgery is following the patient closely. Knee x-rays showed bilateral fluid effusions and swelling of the tibial tubercle also. The patient was started on empiric antibiotics. Cultures are negative as mentioned earlier. PAST MEDICAL HISTORY: Reviewed. REVIEW OF SYSTEMS: CARDIOVASCULAR: S1, S2. Respiratory: As mentioned earlier. GI no nausea or vomiting. : No dysuria. Central nervous system: No numbness or weakness. CURRENT MEDICATIONS ARE: 1. Tylenol 650 mg p.o. q.6h p.r.n. 2. Norvasc 5 mg. 3. Alphagan eye drops. 4. Catapres. 5. Rocephin 1 g daily. 6. Trusopt 1 drop both eyes. 7. Apresoline. 8. Xalatan eye drops. 9. Zinc oxide. 10.Multivitamins. 11.Narcan. 12.Mycostatin. 13.Zofran. 14.Protonix. 15.Timoptic. PHYSICAL EXAM: Patient is alert, oriented times once. Pulse 83. Blood pressure 141/74, respiration 16, temperature 97.2, pulse ox 94% on room air. HEENT: Conjunctivae normal. NECK: No jugular venous distention. Cardiovascular: S1, S2 muffled. Respiratory: Breath sounds diminished in the bases. A few scattered rhonchi and crackles. ABDOMEN: Soft, nontender. Legs: Bilateral knee joint effusions. Right more the left. Severe tenderness. Movements are painful. LAB STUDIES: WBC 12.8, hemoglobin 12.2. The ESR and CRP noted. Accu-Cheks 122, 109. ASSESSMENT: 1. Fever for evaluation, possible bilateral knee joint arthritis, right more than the left, possibly degenerative joint disease, possibly gout. Uric acid level normal. 2. Negative cultures so far. 3. Dementia. 4. Diabetes mellitus type 2. 5. Glaucoma. 6. Change in mental status, metabolic encephalopathy, acute on chronic. 7. FULL CODE. RECOMMENDATIONS AND DISCUSSION: This 87-year-old gentleman who presented with multiple complex medical issues, we will monitor the patient closely, continue the current medications, management and symptomatic treatment. Discussed with Orthopedic surgery. We will aspirate the joint and send fluid for culture and as well as crystal evaluations. Otherwise, continue the rest of the medications. DVT prophylaxis. Antibiotics. Further recommendations to follow. Repeat labs have been ordered. MMODL / IJN: [id number] /
[2018-04-25] MEDS: LATANOPROST 0.005% OPHTH DROPS 2.5 ML BTL BOTH EYES SCH (21:50)
[2018-04-25] MEDS: SODIUM CHLORIDE 0.9% 1,000 ML IV SCH (22:38)
[2018-04-25] MEDS: HEPARIN SODIUM,PORCINE 5,000 UNIT/ML 1 ML VIAL SQ SCH (23:33)
[2018-04-26 07:53] LABS: Glucose,Whole Blood 104 mg/dL (75-99)
[2018-04-26 09:02] LABS: Basophils % (A) 0 %; Eosinophils # (A) 0.1 k/uL (0-0.7); Eosinophils % (A) 1 %; HCT 38.2 % (39.0-53.0); HGB 11.9 gm/dL (13.0-17.5); Hypochromasia Slight; Lymphocytes # (A) 2.1 k/uL (1.0-4.8); Lymphocytes % (A) 21 %; MCH 28.6 pg (25.0-35.0); MCHC 31.2 g/dL (31.0-37.0); MCV 91.7 fL (80.0-100.0); Mean Platelet Volume 6.2; Monocytes # (A) 0.8 k/uL (0-1.0); Monocytes % (A) 8 %; Neutrophils # (A) 6.5 k/uL (1.3-7.7); Neutrophils % (A) 67 %; Platelet Count 277 k/uL (150-450); RBC 4.16 m/uL (4.30-5.90); WBC 9.6 k/uL (3.8-10.6)
[2018-04-26 09:11] LABS: Anion Gap 10 mmol/L; Blood Urea Nitrogen 21 mg/dL (9-20); Calcium 9.1 mg/dL (8.4-10.2); Carbon Dioxide 29 mmol/L (22-30); Chloride 103 mmol/L (98-107); Glucose 113 mg/dL (74-99); Potassium 3.8 mmol/L (3.5-5.1); Sodium 142 mmol/L (137-145)
[2018-04-26] MEDS: amLODIPine 5 MG TAB PO SCH (09:30)
[2018-04-26] MEDS: cloNIDine HCL 0.1 MG TAB PO PRN (09:30)
[2018-04-26] MEDS: MULTIVITAMINS, THERA 1 EACH TAB PO SCH (09:30)
[2018-04-26] MEDS: HEPARIN SODIUM,PORCINE 5,000 UNIT/ML 1 ML VIAL SQ SCH ×2 (09:30→21:27)
[2018-04-26] MEDS: PANTOPRAZOLE 40 MG TABLET PO SCH (09:30)
[2018-04-26] MEDS: ACETAMINOPHEN TAB 325 MG TAB PO PRN (09:30)
[2018-04-26] MEDS: DORZOLAMIDE HCL 2% DROPS 10 ML BTL BOTH EYES SCH ×2 (09:40→21:28)
[2018-04-26] MEDS: TIMOLOL 0.5% OPHTH DROPS 5 ML BTL BOTH EYES SCH ×2 (09:40→21:28)
[2018-04-26] MEDS: BRIMONIDINE TARTRATE 0.2% DROPS 5 ML BTL BOTH EYES SCH ×2 (09:40→21:28)
--- NOTE | 2018-04-26 10:15 | P.PN ---
<Sarai Cummings Gisella - Last Filed: 04/26/18 11:56> Subjective Progress Note Date: 04/26/18 Principal diagnosis: Bilateral knee pain and effusions The patient is an 87-year-old male who we've been following for bilateral knee pain and effusions. The patient was admitted to the hospital for altered mental status and weakness. The source of possible infection was unknown on admission, however the patient's white count, CRP, and sed rate were elevated. The patient also had fevers. The patient's urinalysis did not reveal infection. Dr. Huynh performed a right knee aspiration yesterday afternoon that revealed yellow cloudy fluid. The fluid was sent to the lab for analysis and revealed 22,900 nucleated cells. Cultures pending but Gram stain reveals no organisms at this time. He is currently receiving Rocephin IV. His white count is down to 9.6 today. Today, the patient is pleasant but still quite confused. The patient was evaluated at the bedside while eating breakfast this morning. No new complaints at this time. Objective - Vital Signs Vital signs: Vital Signs Temp 98.2 F 04/26/18 07:10 Pulse 95 04/26/18 07:10 Resp 18 04/26/18 07:10 BP 162/74 04/26/18 07:10 Pulse Ox 94 L 04/26/18 07:10 Intake & Output 04/25/18 04/26/18 04/26/18 18:59 06:59 18:59 Intake Total 300 200 Balance 300 200 Intake: Oral 300 200 Other: Voiding Method Diaper Diaper Incontinent Incontinent # Voids 2 2 # Bowel Movements 0 0 - Exam The patient is an 87 year old male that is no acute distress. He is alert and oriented x1. The patient's head is normocephalic and atraumatic. Exam of the cervical spine reveals no pain upon palpation or range of motion. Exam of the bilateral upper extremities reveal no obvious deformities or pain upon range of motion. Exam of the left lower extremity reveals slight improvement of effusion to the knee. There is no erythema or open wounds to the knees or lower legs. There is improved pain to palpation to the left knee and he tolerated some passive ROM of the left knee today. Exam of the right lower extremity reveals a moderate knee effusion. There is improved pain to palpation of the right knee today also. Bilateral calves are soft and nontender. Patient is able to wiggle his toes without difficulty. Neurological and circulatory status is intact. - Labs CBC & Chem 7: 04/26/18 08:38 04/26/18 08:38 Labs: Abnormal Lab Results - Last 24 Hours (Table) 04/25/18 04/25/18 04/25/18 Range/Units 07:36 09:30 09:30 WBC 12.5 H (3.8-10.6) k/uL RBC (4.30-5.90) m/uL Hgb 12.2 L (13.0-17.5) gm/dL Hct (39.0-53.0) % MCHC 30.2 L (31.0-37.0) g/dL Neutrophils # 8.9 H (1.3-7.7) k/uL Monocytes # 1.1 H (0-1.0) k/uL BUN (9-20) mg/dL Creatinine 0.56 L (0.66-1.25) mg/dL Glucose 113 H (74-99) mg/dL POC Glucose (mg/dL) 113 H (75-99) mg/dL Urine Protein (Negative) Urine Ketones (Negative) Urine Blood (Negative) 04/25/18 04/25/18 04/25/18 Range/Units 10:54 12:24 16:56 WBC (3.8-10.6) k/uL RBC (4.30-5.90) m/uL Hgb (13.0-17.5) gm/dL Hct (39.0-53.0) % MCHC (31.0-37.0) g/dL Neutrophils # (1.3-7.7) k/uL Monocytes # (0-1.0) k/uL BUN (9-20) mg/dL Creatinine (0.66-1.25) mg/dL Glucose (74-99) mg/dL POC Glucose (mg/dL) 122 H 119 H (75-99) mg/dL Urine Protein 1+ H (Negative) Urine Ketones 2+ H (Negative) Urine Blood Small H (Negative) 04/25/18 04/26/18 04/26/18 Range/Units 19:53 07:12 08:38 WBC (3.8-10.6) k/uL RBC 4.16 L (4.30-5.90) m/uL Hgb 11.9 L (13.0-17.5) gm/dL Hct 38.2 L (39.0-53.0) % MCHC (31.0-37.0) g/dL Neutrophils # (1.3-7.7) k/uL Monocytes # (0-1.0) k/uL BUN (9-20) mg/dL Creatinine (0.66-1.25) mg/dL Glucose (74-99) mg/dL POC Glucose (mg/dL) 127 H 104 H (75-99) mg/dL Urine Protein (Negative) Urine Ketones (Negative) Urine Blood (Negative) 04/26/18 Range/Units 08:38 WBC (3.8-10.6) k/uL RBC (4.30-5.90) m/uL Hgb (13.0-17.5) gm/dL Hct (39.0-53.0) % MCHC (31.0-37.0) g/dL Neutrophils # (1.3-7.7) k/uL Monocytes # (0-1.0) k/uL BUN 21 H (9-20) mg/dL Creatinine 0.54 L (0.66-1.25) mg/dL Glucose 113 H (74-99) mg/dL POC Glucose (mg/dL) (75-99) mg/dL Urine Protein (Negative) Urine Ketones (Negative) Urine Blood (Negative) Microbiology - Last 24 Hours (Table) 04/25/18 18:41 Gram Stain - Preliminary Synovial Fluid Body Fluid Culture - Preliminary 04/24/18 14:59 Blood Culture - Preliminary Blood No Growth after 24 hours 04/25/18 10:54 Urine Culture - Preliminary Urine,Catheterized Assessment and Plan (1) Diabetes mellitus Current Visit: Yes Status: Acute Code(s): E11.9 - TYPE 2 DIABETES MELLITUS WITHOUT COMPLICATIONS SNOMED Code(s): 81163374 (2) Knee pain, bilateral Current Visit: Yes Status: Acute Code(s): M25.561 - PAIN IN RIGHT KNEE; M25.562 - PAIN IN LEFT KNEE SNOMED Code(s): 02182752 (3) Bilateral knee effusions Current Visit: Yes Status: Acute Code(s): M25.461 - EFFUSION, RIGHT KNEE; M25.462 - EFFUSION, LEFT KNEE SNOMED Code(s): 985796860 (4) Generalized weakness Current Visit: Yes Status: Acute Code(s): R53.1 - WEAKNESS SNOMED Code(s) : 23137337 (5) Dementia Current Visit: No Status: Acute Code(s): F03.90 - UNSPECIFIED DEMENTIA WITHOUT BEHAVIORAL DISTURBANCE SNOMED Code(s): 88645593 Plan: The clinical and x-ray findings were discussed with the nursing staff and Dr. Huynh. No family is at the bedside at this time. No active infection is present in the right knee. No surgical intervention in the form of an I&D is warranted at this time. Cultures are pending. Continue antibiotics per internal medicine. The patient appears to be comfortable while laying in bed, continue Tylenol for pain control and fever reduction. We will continue to follow the patient with internal medicine. <Ken Huynh - Last Filed: 04/26/18 13:32> Objective - Vital Signs Vital signs: Vital Signs Temp 98.2 F 04/26/18 07:10 Pulse 95 04/26/18 07:10 Resp 18 04/26/18 07:10 BP 162/74 04/26/18 07:10 Pulse Ox 94 L 04/26/18 07:10 Intake & Output 04/25/18 04/26/18 04/26/18 18:59 06:59 18:59 Intake Total 300 200 Balance 300 200 Intake: Oral 300 200 Other: Voiding Method Diaper Diaper Incontinent Incontinent # Voids 2 2 # Bowel Movements 0 0 - Labs CBC & Chem 7: 04/26/18 08:38 04/26/18 08:38 Labs: Abnormal Lab Results - Last 24 Hours (Table) 04/25/18 04/25/18 04/26/18 Range/Units 16:56 19:53 07:12 RBC (4.30-5.90) m/uL Hgb (13.0-17.5) gm/dL Hct (39.0-53.0) % BUN (9-20) mg/dL Creatinine (0.66-1.25) mg/dL Glucose (74-99) mg/dL POC Glucose (mg/dL) 119 H 127 H 104 H (75-99) mg/dL 04/26/18 04/26/18 04/26/18 Range/Units 08:38 08:38 12:00 RBC 4.16 L (4.30-5.90) m/uL Hgb 11.9 L (13.0-17.5) gm/dL Hct 38.2 L (39.0-53.0) % BUN 21 H (9-20) mg/dL Creatinine 0.54 L (0.66-1.25) mg/dL Glucose 113 H (74-99) mg/dL POC Glucose (mg/dL) 185 H (75-99) mg/dL Microbiology - Last 24 Hours (Table) 04/25/18 18:41 Gram Stain - Preliminary Synovial Fluid Body Fluid Culture - Preliminary 04/24/18 14:59 Blood Culture - Preliminary Blood No Growth after 24 hours 04/25/18 10:54 Urine Culture - Preliminary Urine,Catheterized Assessment and Plan Plan: Discussed with Nitin Cummings and agree with above. Pt subsequently seen and examined by me as well. Pt was sleeping soundly - was not awakened. Right knee effusion appears diminished. Decreased calor. Will await final cultures but preliminary labs are more consistent with acute crystalline arthropathy (gout). Continue symptomatic treatment for the knees. May benefit from brief course of colchicine or indocin.
[2018-04-26 12:09] LABS: Glucose,Whole Blood 185 mg/dL (75-99)
[2018-04-26 13:58] VITALS: BMI 25.2
[2018-04-26] MEDS: methylPREDNISolone SOD SUCCI 40 MG/ML 1 ML VIAL IV SCH ×2 (14:17→21:44)
[2018-04-26] MEDS: COLCHICINE 0.6 MG EACH PO SCH ×2 (14:17→21:27)
[2018-04-26 17:18] LABS: Glucose,Whole Blood 166 mg/dL (75-99)
[2018-04-26] MEDS: INSULIN ASPART (NovoLOG) 100 UNIT/ML VIAL SQ SCH ×2 (17:52→21:27)
--- NOTE | 2018-04-26 18:20 | PN ---
PROGRESS NOTE DATE OF SERVICE: 04/26/2018 This 87-year-old gentleman was admitted with bilateral knee pain, right more than the left as well as fever, is being closely monitored. Dr. Huynh aspirated about a few mL of clear yellow fluid and sent for the cultures and other testing. The fluid is cloudy with 22,900 nucleated cells with mostly polynuclear. Possibility of gout was suspected. No chest pain. No palpitations. No fever. EXAM: Patient continues to be confused. Pulse 67, blood pressure 110/50, respiration 16, temperature 97.2, pulse ox 94% on 2 L. HEENT: Conjunctivae normal. Oral mucosa moist. NECK: No jugular venous distention. No lymph node enlargement. CARDIOVASCULAR: S1, S2. RESPIRATORY: Diminished breath sounds at the bases. Scattered rhonchi. ABDOMEN: Soft, nontender. NERVOUS SYSTEM: No focal deficits. LAB STUDIES: At this time shows WBC 9.2, hemoglobin ( ), sodium 140, potassium 3.8. ASSESSMENT: 1. Fever for evaluation. 2. Possible bilateral knee joint arthritis, right more than the left, possibly degenerative joint disease, possibly gout. Uric acid level normal. Status post arthrocentesis of the right knee joint. 3. Negative cultures so far. 4. Dementia. 5. Diabetes mellitus type 2. 6. Glaucoma. 7. Change in mental status, metabolic encephalopathy, acute on chronic. 8. FULL CODE. RECOMMENDATIONS AND DISCUSSION: Continue current management, continue to monitor, continue symptomatic treatment. At this time I would recommend a short course of steroids and colchicine. Discussed with Dr. Huynh. Guarded prognosis. Further recommendations to follow. See orders for details. MMODL / IJN: [id number] /
[2018-04-26 20:22] LABS: Glucose,Whole Blood 190 mg/dL (75-99)
[2018-04-26] MEDS: LATANOPROST 0.005% OPHTH DROPS 2.5 ML BTL BOTH EYES SCH (21:28)
[2018-04-26] MEDS: SODIUM CHLORIDE 0.9% 1,000 ML IV SCH (21:29)
[2018-04-26] MEDS: ZINC OXIDE 20% OINT 28.4 GM TUBE TOPICAL SCH (21:44)
[2018-04-27] MEDS: methylPREDNISolone SOD SUCCI 40 MG/ML 1 ML VIAL IV SCH ×2 (05:45→13:55)
[2018-04-27 07:28] LABS: Glucose,Whole Blood 177 mg/dL (75-99)
[2018-04-27 07:56] LABS: Basophils % (A) 0 %; Eosinophils # (A) 0.1 k/uL (0-0.7); Eosinophils % (A) 1 %; HCT 38.8 % (39.0-53.0); HGB 12.1 gm/dL (13.0-17.5); Hypochromasia Slight; Lymphocytes # (A) 1.4 k/uL (1.0-4.8); Lymphocytes % (A) 18 %; MCH 28.2 pg (25.0-35.0); MCHC 31.2 g/dL (31.0-37.0); MCV 90.4 fL (80.0-100.0); Mean Platelet Volume 6.4; Monocytes # (A) 0.3 k/uL (0-1.0); Monocytes % (A) 4 %; Neutrophils # (A) 5.8 k/uL (1.3-7.7); Neutrophils % (A) 76 %; Platelet Count 382 k/uL (150-450); RDW 12.9 % (11.5-15.5); WBC 7.7 k/uL (3.8-10.6)
[2018-04-27 08:12] LABS: Anion Gap 8 mmol/L; Blood Urea Nitrogen 28 mg/dL (9-20); Calcium 9.4 mg/dL (8.4-10.2); Carbon Dioxide 31 mmol/L (22-30); Chloride 104 mmol/L (98-107); Glucose 173 mg/dL (74-99); Potassium 4.3 mmol/L (3.5-5.1); Sodium 143 mmol/L (137-145)
[2018-04-27] MEDS: cloNIDine HCL 0.1 MG TAB PO PRN (09:39)
[2018-04-27] MEDS: COLCHICINE 0.6 MG EACH PO SCH ×2 (09:39→20:49)
[2018-04-27] MEDS: MULTIVITAMINS, THERA 1 EACH TAB PO SCH (09:39)
[2018-04-27] MEDS: PANTOPRAZOLE 40 MG TABLET PO SCH (09:39)
[2018-04-27] MEDS: ACETAMINOPHEN TAB 325 MG TAB PO PRN (09:39)
[2018-04-27] MEDS: amLODIPine 5 MG TAB PO SCH (09:39)
[2018-04-27] MEDS: INSULIN ASPART (NovoLOG) 100 UNIT/ML VIAL SQ SCH ×4 (09:40→20:55)
[2018-04-27] MEDS: BRIMONIDINE TARTRATE 0.2% DROPS 5 ML BTL BOTH EYES SCH ×2 (09:40→20:51)
[2018-04-27] MEDS: TIMOLOL 0.5% OPHTH DROPS 5 ML BTL BOTH EYES SCH ×2 (09:40→20:51)
[2018-04-27] MEDS: DORZOLAMIDE HCL 2% DROPS 10 ML BTL BOTH EYES SCH ×2 (09:40→20:51)
[2018-04-27] MEDS: HEPARIN SODIUM,PORCINE 5,000 UNIT/ML 1 ML VIAL SQ SCH ×2 (09:40→20:50)
[2018-04-27] MEDS ORDERED: SENNOSIDES-DOCUSATE SODIUM 1 EACH TAB PO STA (09:55)
[2018-04-27 11:47] LABS: Glucose,Whole Blood 176 mg/dL (75-99)
--- NOTE | 2018-04-27 13:13 | P.PN ---
Subjective Progress Note Date: 04/27/18 Chart and interval labs reviewed. Pt still pleasantly confused and unable to provide additional information. Objective - Vital Signs Vital signs: Vital Signs Temp 98.4 F 04/27/18 07:02 Pulse 90 04/27/18 07:02 Resp 20 04/27/18 07:02 BP 185/91 04/27/18 07:02 Pulse Ox 92 L 04/27/18 07:08 Intake & Output 04/26/18 04/27/18 04/27/18 18:59 06:59 18:59 Intake Total 300 Balance 300 Weight 84.368 kg Intake: Oral 300 Other: Voiding Method Diaper Diaper Incontinent Incontinent # Voids 1 3 - Exam Right knee effusion significantly decreased. No erythema or calor. Patient is able to actively range 0-40 without evidence of pain. Persistent left knee effusion but no tenderness to palpation. - Additional findings Additional findings: Synovial labs: No growth on cultures. No organisms seen. No crystals identified. - Labs CBC & Chem 7: 04/27/18 07:15 04/27/18 07:15 Labs: Abnormal Lab Results - Last 24 Hours (Table) 04/26/18 04/26/18 04/27/18 Range/Units 17:10 20:13 07:15 Hgb 12.1 L (13.0-17.5) gm/dL Hct 38.8 L (39.0-53.0) % Carbon Dioxide (22-30) mmol/L BUN (9-20) mg/dL Creatinine (0.66-1.25) mg/dL Glucose (74-99) mg/dL POC Glucose (mg/dL) 166 H 190 H (75-99) mg/dL 04/27/18 04/27/18 04/27/18 Range/Units 07:15 07:26 11:38 Hgb (13.0-17.5) gm/dL Hct (39.0-53.0) % Carbon Dioxide 31 H (22-30) mmol/L BUN 28 H (9-20) mg/dL Creatinine 0.59 L (0.66-1.25) mg/dL Glucose 173 H (74-99) mg/dL POC Glucose (mg/dL) 177 H 176 H (75-99) mg/dL Microbiology - Last 24 Hours (Table) 04/25/18 10:54 Urine Culture - Final Urine,Catheterized 04/24/18 14:59 Blood Culture - Preliminary Blood No Growth after 48 hours 04/25/18 18:41 Gram Stain - Preliminary Synovial Fluid Body Fluid Culture - Preliminary Assessment and Plan Assessment: Bilateral knee effusions - acute gouty arthropathy with underlying degenerative joint disease (1) Bilateral knee effusions Current Visit: Yes Status: Acute Code(s): M25.461 - EFFUSION, RIGHT KNEE; M25.462 - EFFUSION, LEFT KNEE SNOMED Code(s): 782593295 (2) Diabetes mellitus Current Visit: Yes Status: Acute Code(s): E11.9 - TYPE 2 DIABETES MELLITUS WITHOUT COMPLICATIONS SNOMED Code(s): 24607478 (3) Dementia Current Visit: No Status: Acute Code(s): F03.90 - UNSPECIFIED DEMENTIA WITHOUT BEHAVIORAL DISTURBANCE SNOMED Code(s): 84847993 Plan: Patient shows good clinical improvement with respect to his knees. Even though synovial aspirate did not show crystals, the presentation is still consistent with acute gouty flare exacerbated by underlying arthritis. Recommend continuing present treatment with steroids and colchicine. Will sign off - please contact us if clinical pictures worsens or with any additional questions. Ken Huynh D.O. [facility]
[2018-04-27 17:16] LABS: Glucose,Whole Blood 158 mg/dL (75-99)
--- NOTE | 2018-04-27 17:45 | PN ---
PROGRESS NOTE DATE OF SERVICE: 04/27/2018 This 87-year-old gentleman who was admitted with fever, bilateral knee swelling was thought to have acute gout. had performed aspiration of the right knee joint. The final cultures are pending. No chest pain. No palpitations. Patient remains confused. EXAM: Pulse is 68, blood pressure 144/60, respirations 16, temperature 97.4, pulse ox 98% on room air. HEENT: Conjunctivae normal. NECK: No jugular venous distention. CARDIOVASCULAR : S1, S2 muffled. Respirations: Breath sounds diminished in the bases. No rhonchi. No crackles. Abdomen is soft, nontender. Legs: Bilateral leg swelling, right more than left. Nervous system: No focal deficits. LABS: WBC 7.2, hemoglobin 12.1, and calcium is 9.4 and are pending at this time. Influenza negative. ASSESSMENT: 1. Fever for evaluation. 2. Possible bilateral knee joint arthritis, right more the left, possibly. 3. degenerative joint disease, possibly gout. Uric acid level normal. 4. Status post arthrocentesis of the right knee joint per Orthopedic surgery. 5. Negative cultures so far. 6. Dementia. 7. Diabetes mellitus type 2. 8. Glaucoma. 9. Change in mental status, metabolic encephalopathy, acute on chronic. 10.FULL CODE. RECOMMENDATIONS AND DISCUSSION: Recommend to continue current medications, management and symptomatic treatment. Recommend to continue the antibiotics and we will await culture reports and as well as crystal studies. Further recommendations to follow. MMODL / IJN: [id number] / [email or web address]
[2018-04-27 20:44] LABS: Glucose,Whole Blood 188 mg/dL (75-99)
[2018-04-27] MEDS: risperiDONE 0.25 MG TAB PO SCH (20:49)
[2018-04-27] MEDS: LATANOPROST 0.005% OPHTH DROPS 2.5 ML BTL BOTH EYES SCH (20:51)
[2018-04-27] MEDS: SODIUM CHLORIDE 0.9% 1,000 ML IV SCH (21:54)
[2018-04-27] MEDS: ZINC OXIDE 20% OINT 28.4 GM TUBE TOPICAL SCH (22:32)
[2018-04-28 07:22] LABS: Glucose,Whole Blood 123 mg/dL (75-99)
[2018-04-28] MEDS: INSULIN ASPART (NovoLOG) 100 UNIT/ML VIAL SQ SCH ×5 (09:53→21:19)
[2018-04-28] MEDS: PANTOPRAZOLE 40 MG TABLET PO SCH (10:02)
[2018-04-28] MEDS: FOLIC ACID 1 MG TAB PO SCH (10:02)
[2018-04-28] MEDS: THIAMINE 100 MG TAB PO SCH (10:02)
[2018-04-28 10:03] LABS: Basophils % (A) 0 %; Eosinophils % (A) 0 %; HCT 41.2 % (39.0-53.0); HGB 12.6 gm/dL (13.0-17.5); Hypochromasia Slight; Lymphocytes % (A) 19 %; MCH 28.2 pg (25.0-35.0); MCHC 30.6 g/dL (31.0-37.0); MCV 92.3 fL (80.0-100.0); Mean Platelet Volume 6.2; Monocytes # (A) 0.7 k/uL (0-1.0); Monocytes % (A) 7 %; Neutrophils # (A) 7.5 k/uL (1.3-7.7); Neutrophils % (A) 72 %; Platelet Count 444 k/uL (150-450); RBC 4.47 m/uL (4.30-5.90); RDW 13.1 % (11.5-15.5); WBC 10.4 k/uL (3.8-10.6)
[2018-04-28] MEDS: TIMOLOL 0.5% OPHTH DROPS 5 ML BTL BOTH EYES SCH ×2 (10:03→21:21)
[2018-04-28] MEDS: DORZOLAMIDE HCL 2% DROPS 10 ML BTL BOTH EYES SCH ×2 (10:03→21:22)
[2018-04-28] MEDS: HEPARIN SODIUM,PORCINE 5,000 UNIT/ML 1 ML VIAL SQ SCH ×2 (10:03→21:22)
[2018-04-28] MEDS: amLODIPine 5 MG TAB PO SCH (10:03)
[2018-04-28] MEDS: MULTIVITAMINS, THERA 1 EACH TAB PO SCH (10:03)
[2018-04-28] MEDS: BRIMONIDINE TARTRATE 0.2% DROPS 5 ML BTL BOTH EYES SCH ×2 (10:04→21:22)
[2018-04-28] MEDS: COLCHICINE 0.6 MG EACH PO SCH ×2 (10:05→21:23)
[2018-04-28 10:13] LABS: Anion Gap 6 mmol/L; Blood Urea Nitrogen 29 mg/dL (9-20); Calcium 9.4 mg/dL (8.4-10.2); Carbon Dioxide 34 mmol/L (22-30); Chloride 105 mmol/L (98-107); Glucose 143 mg/dL (74-99); Potassium 3.4 mmol/L (3.5-5.1); Sodium 145 mmol/L (137-145)
[2018-04-28 11:59] LABS: Glucose,Whole Blood 180 mg/dL (75-99)
[2018-04-28] MEDS: LACTATED RINGERS 1,000 ML IV SCH ×2 (13:40→21:31)
[2018-04-28 17:21] LABS: Glucose,Whole Blood 141 mg/dL (75-99)
[2018-04-28 21:02] LABS: Glucose,Whole Blood 121 mg/dL (75-99)
[2018-04-28] MEDS: LATANOPROST 0.005% OPHTH DROPS 2.5 ML BTL BOTH EYES SCH (21:21)
[2018-04-28] MEDS: ZINC OXIDE 20% OINT 28.4 GM TUBE TOPICAL SCH (21:21)
[2018-04-28] MEDS: risperiDONE 0.25 MG TAB PO SCH (21:23)
[2018-04-29] MEDS: hydrALAZINE HCL 20 MG/ML 1 ML VIAL IVP PRN (01:21)
--- NOTE | 2018-04-29 05:39 | PN ---
PROGRESS NOTE DATE OF SERVICE: April 28, 2018. PRESENTING COMPLAINT: Bilateral knee pain. INTERVAL HISTORY: This patient presented with bilateral knee arthritis flare up. The patient has been rather delirious, talking, sometimes not making any sense, is also talking to people not present. Did not eat much. Appears a bit dry. Started the patient on IV fluids. REVIEW OF SYSTEMS: Done for constitutional, cardiovascular, GI, pulmonary; relevant findings as above. CURRENT MEDICATIONS: Reviewed that include IV fluids. PHYSICAL EXAMINATION: VITAL SIGNS: Temperature 97.7, pulse 98, respiration 16, blood pressure 164/90, pulse ox 94 percent on room air. GENERAL APPEARANCE: Lying in bed, awake, talking to himself. EYES: Pupils equal. Conjunctivae normal. NECK: JVD not raised. Mass not palpable. RESPIRATORY: Effort normal. LUNGS: Fair air entry. CARDIOVASCULAR: First and second sounds normal. No edema. ABDOMEN: Soft, nontender. Liver and spleen not palpable. PSYCHIATRY: The patient is rather delirious. INVESTIGATION: White count 10.4, potassium 3.4, BUN 29, creatinine 0.61. ASSESSMENT: 1. Acute delirium, multifactorial. 2. Moderate to severe cognitive impairment at baseline, probably from late onset Alzheimer's dementia. 3. Bilateral arthritis could be flare up of osteoarthritis. 4. Diabetes mellitus type 2. PLAN: At this point, IV fluids have been added. The patient is already on Risperdal, see how he does with the same. Repeat labs in the morning. MMODL / IJN: [id number] /
[2018-04-29 07:36] LABS: Glucose,Whole Blood 105 mg/dL (75-99)
[2018-04-29] MEDS: INSULIN ASPART (NovoLOG) 100 UNIT/ML VIAL SQ SCH ×4 (09:26→20:38)
[2018-04-29 10:03] LABS: Basophils % (A) 0 %; Eosinophils # (A) 0.1 k/uL (0-0.7); Eosinophils % (A) 1 %; HCT 40.8 % (39.0-53.0); HGB 12.8 gm/dL (13.0-17.5); Hypochromasia Slight; Lymphocytes # (A) 2.9 k/uL (1.0-4.8); Lymphocytes % (A) 32 %; MCH 28.9 pg (25.0-35.0); MCHC 31.4 g/dL (31.0-37.0); MCV 92.2 fL (80.0-100.0); Mean Platelet Volume 6.6; Monocytes # (A) 0.4 k/uL (0-1.0); Monocytes % (A) 5 %; Neutrophils # (A) 5.6 k/uL (1.3-7.7); Neutrophils % (A) 61 %; Platelet Count 401 k/uL (150-450); RBC 4.43 m/uL (4.30-5.90); RDW 13.4 % (11.5-15.5); WBC 9.2 k/uL (3.8-10.6)
[2018-04-29 10:08] LABS: Glucose 118 mg/dL (74-99); Sodium 144 mmol/L (137-145)
[2018-04-29 10:09] LABS: Anion Gap 7 mmol/L; Blood Urea Nitrogen 27 mg/dL (9-20); Calcium 9.4 mg/dL (8.4-10.2); Carbon Dioxide 35 mmol/L (22-30); Chloride 102 mmol/L (98-107); Potassium 4.2 mmol/L (3.5-5.1)
[2018-04-29 12:26] LABS: Glucose,Whole Blood 127 mg/dL (75-99)
--- NOTE | 2018-04-29 13:56 | DS ---
DISCHARGE SUMMARY DATE OF ADMISSION: 04/24/2018 DATE OF DISCHARGE: 04/29/2018 FINAL DIAGNOSES: 1. Acute delirium, multifactorial. 2. Moderate to severe cognitive impairment at baseline, probably from late onset Alzheimer's dementia. 3. Bilateral knee osteoarthritis with acute flare up. 4. Diabetes mellitus type 2. 5. Clinical and biochemical dehydration. 6. Medical debility. HOSPITAL COURSE: This is a patient who is a resident of [facility], presented with pain in both the knees. Clinical and biochemical diagnosis not clear, possibly flare up osteoarthritis. Patient's knee was tapped, did respond to anti-inflammatory medications. Patient was a bit delirious, felt to be flaring up of his Alzheimer's dementia. Patient's oral intake has gone down. Patient will be going to rehab because as he is not walking much. Overall prognosis is guarded. CONSULTATION: Dr. Huynh from [facility]. PHYSICAL EXAMINATION: Temperature 97.8, pulse 86, respiration 16, blood pressure 115/83, pulse ox 92% on room air. LUNGS: Clear. PSYCH: Patient does answer some questions and then seems to drift off. INVESTIGATIONS: White count 9.2, hemoglobin 12.8, BUN 27, creatinine 0.56. DISCHARGE MEDICATIONS: 1. Alphagan 0.15% 1 drop to both eyes b.i.d. 2. Xalatan 0.005% 1 drop to both eyes q.h.s. 3. Multivitamin 1 tablet p.o. daily. 4. Trusopt 2% one drop to both eyes b.i.d. 5. Mycostatin 1 application topical b.i.d. p.r.n. 6. Desitin 1 application topical as directed. 7. Tylenol 500 mg q.8 p.r.n. 8. Timoptic 0.5% 1 drop to both eyes b.i.d. 9. Pepcid 20 mg b.i.d. 10.Naproxen 250 mg b.i.d. 11.Norvasc 10 mg p.o. daily. 12.Risperdal 0.25 mg p.o. daily in the morning, Risperdal 0.5 mg p.o. q.h.s. DISPOSITION: [facility]. FOLLOWUP: [facility]. MMODL / IJN: [id number] /
[2018-04-29] MEDS: FOLIC ACID 1 MG TAB PO SCH (14:13)
[2018-04-29] MEDS: PANTOPRAZOLE 40 MG TABLET PO SCH (14:13)
[2018-04-29] MEDS: MULTIVITAMINS, THERA 1 EACH TAB PO SCH (14:13)
[2018-04-29] MEDS: THIAMINE 100 MG TAB PO SCH (14:13)
[2018-04-29] MEDS: amLODIPine 5 MG TAB PO SCH (14:13)
[2018-04-29] MEDS: BRIMONIDINE TARTRATE 0.2% DROPS 5 ML BTL BOTH EYES SCH ×2 (14:14→21:22)
[2018-04-29] MEDS: TIMOLOL 0.5% OPHTH DROPS 5 ML BTL BOTH EYES SCH ×2 (14:14→21:22)
[2018-04-29] MEDS: LACTATED RINGERS 1,000 ML IV SCH ×2 (14:14→21:14)
[2018-04-29] MEDS: HEPARIN SODIUM,PORCINE 5,000 UNIT/ML 1 ML VIAL SQ SCH ×2 (14:14→21:15)
[2018-04-29] MEDS: COLCHICINE 0.6 MG EACH PO SCH ×2 (14:14→21:15)
[2018-04-29] MEDS: DORZOLAMIDE HCL 2% DROPS 10 ML BTL BOTH EYES SCH ×2 (14:14→21:23)
[2018-04-29 17:10] LABS: Glucose,Whole Blood 109 mg/dL (75-99)
[2018-04-29 20:18] LABS: Glucose,Whole Blood 124 mg/dL (75-99)
[2018-04-29] MEDS: risperiDONE 0.5 MG TAB PO SCH (21:15)
[2018-04-29] MEDS: LATANOPROST 0.005% OPHTH DROPS 2.5 ML BTL BOTH EYES SCH (21:23)
[2018-04-29] MEDS: ZINC OXIDE 20% OINT 28.4 GM TUBE TOPICAL SCH (21:24)
[2018-04-30] MEDS: LACTATED RINGERS 1,000 ML IV SCH ×2 (02:08→11:35)
[2018-04-30 07:20] LABS: Glucose,Whole Blood 103 mg/dL (75-99)
[2018-04-30] MEDS: PANTOPRAZOLE 40 MG TABLET PO SCH (07:35)
[2018-04-30] MEDS: risperiDONE 0.25 MG TAB PO SCH (07:35)
[2018-04-30] MEDS: FOLIC ACID 1 MG TAB PO SCH (07:35)
[2018-04-30] MEDS: HEPARIN SODIUM,PORCINE 5,000 UNIT/ML 1 ML VIAL SQ SCH ×2 (07:35→21:30)
[2018-04-30] MEDS: amLODIPine 5 MG TAB PO SCH (07:35)
[2018-04-30] MEDS: cloNIDine HCL 0.1 MG TAB PO PRN (07:35)
[2018-04-30] MEDS: THIAMINE 100 MG TAB PO SCH (07:35)
[2018-04-30] MEDS: MULTIVITAMINS, THERA 1 EACH TAB PO SCH (07:35)
[2018-04-30] MEDS: COLCHICINE 0.6 MG EACH PO SCH ×2 (07:36→21:29)
[2018-04-30] MEDS: DORZOLAMIDE HCL 2% DROPS 10 ML BTL BOTH EYES SCH ×2 (07:36→21:33)
[2018-04-30] MEDS: INSULIN ASPART (NovoLOG) 100 UNIT/ML VIAL SQ SCH ×4 (07:36→21:31)
[2018-04-30] MEDS: BRIMONIDINE TARTRATE 0.2% DROPS 5 ML BTL BOTH EYES SCH ×2 (07:37→21:37)
[2018-04-30] MEDS: TIMOLOL 0.5% OPHTH DROPS 5 ML BTL BOTH EYES SCH ×2 (07:37→21:33)
[2018-04-30] MEDS: hydrALAZINE HCL 20 MG/ML 1 ML VIAL IVP PRN (07:59)
[2018-04-30 10:23] LABS: Basophils % (A) 0 %; Eosinophils # (A) 0.1 k/uL (0-0.7); Eosinophils % (A) 2 %; HCT 38.3 % (39.0-53.0); HGB 11.9 gm/dL (13.0-17.5); Hypochromasia Slight; Lymphocytes # (A) 2.2 k/uL (1.0-4.8); Lymphocytes % (A) 30 %; MCH 28.3 pg (25.0-35.0); MCHC 31.1 g/dL (31.0-37.0); MCV 91.1 fL (80.0-100.0); Mean Platelet Volume 6.5; Monocytes # (A) 0.4 k/uL (0-1.0); Monocytes % (A) 5 %; Neutrophils # (A) 4.5 k/uL (1.3-7.7); Neutrophils % (A) 62 %; Platelet Count 412 k/uL (150-450); RBC 4.21 m/uL (4.30-5.90); RDW 13.2 % (11.5-15.5); WBC 7.4 k/uL (3.8-10.6)
[2018-04-30 10:27] LABS: Anion Gap 5 mmol/L; Blood Urea Nitrogen 20 mg/dL (9-20); Calcium 9.1 mg/dL (8.4-10.2); Carbon Dioxide 34 mmol/L (22-30); Chloride 101 mmol/L (98-107); Glucose 144 mg/dL (74-99); Potassium 3.7 mmol/L (3.5-5.1); Sodium 140 mmol/L (137-145)
[2018-04-30 12:34] LABS: Glucose,Whole Blood 125 mg/dL (75-99)
[2018-04-30 17:21] LABS: Glucose,Whole Blood 136 mg/dL (75-99)
[2018-04-30 20:39] LABS: Glucose,Whole Blood 135 mg/dL (75-99)
[2018-04-30] MEDS: risperiDONE 0.5 MG TAB PO SCH (21:29)
[2018-04-30] MEDS: LATANOPROST 0.005% OPHTH DROPS 2.5 ML BTL BOTH EYES SCH (21:33)
[2018-04-30] MEDS: ZINC OXIDE 20% OINT 28.4 GM TUBE TOPICAL SCH (21:33)
[2018-05-01] MEDS: LACTATED RINGERS 1,000 ML IV SCH ×2 (01:36→08:27)
[2018-05-01 07:21] LABS: Glucose,Whole Blood 105 mg/dL (75-99)
[2018-05-01] MEDS: INSULIN ASPART (NovoLOG) 100 UNIT/ML VIAL SQ SCH ×2 (07:53→12:38)
[2018-05-01] MEDS: PANTOPRAZOLE 40 MG TABLET PO SCH (08:25)
[2018-05-01] MEDS: HEPARIN SODIUM,PORCINE 5,000 UNIT/ML 1 ML VIAL SQ SCH (08:25)
[2018-05-01] MEDS: risperiDONE 0.25 MG TAB PO SCH (08:26)
[2018-05-01] MEDS: COLCHICINE 0.6 MG EACH PO SCH (08:26)
[2018-05-01] MEDS: amLODIPine 5 MG TAB PO SCH (08:26)
[2018-05-01] MEDS: DORZOLAMIDE HCL 2% DROPS 10 ML BTL BOTH EYES SCH (08:34)
[2018-05-01] MEDS: TIMOLOL 0.5% OPHTH DROPS 5 ML BTL BOTH EYES SCH (08:34)
[2018-05-01] MEDS: BRIMONIDINE TARTRATE 0.2% DROPS 5 ML BTL BOTH EYES SCH (08:34)
[2018-05-01 10:30] LABS: Anion Gap 7 mmol/L; Blood Urea Nitrogen 18 mg/dL (9-20); Calcium 9.2 mg/dL (8.4-10.2); Carbon Dioxide 34 mmol/L (22-30); Chloride 100 mmol/L (98-107); Glucose 136 mg/dL (74-99); Sodium 141 mmol/L (137-145)
[2018-05-01 11:52] LABS: Glucose,Whole Blood 123 mg/dL (75-99)
[2018-05-01] MEDS: MULTIVITAMINS, THERA 1 EACH TAB PO SCH (12:38)
[2018-05-01] MEDS: THIAMINE 100 MG TAB PO SCH (12:38)
[2018-05-01] MEDS: FOLIC ACID 1 MG TAB PO SCH (12:38)
[2018-05-01 14:55] VITALS: BP 151/70; PULSE 94; RESP 18; TEMP 97.2
--- NOTE | 2018-05-01 16:01 | DS ---
DISCHARGE SUMMARY DATE OF ADMISSION: 04/23/2018 DATE OF DISCHARGE: 05/01/2018 FINAL DIAGNOSES: 1. Acute delirium, multifactorial. 2. Moderate to severe cognitive impairment at baseline with some worsening, probably from late-onset Alzheimer's dementia. 3. Bilateral knee osteoarthritis with acute flareup. 4. Diabetes mellitus, type 2. 5. Clinical and biochemical dehydration. 6. Medical debility. HOSPITAL COURSE: This is a patient who is a resident of [facility]. He presented with pain in both knees. Clinical and biochemical diagnosis was not entirely obvious. Patient did respond well to anti-inflammatory medication and antibiotics. Patient's Alzheimer's dementia seemed to have worsened with acute delirium. Patient's oral intake has gone down. The patient is not back to his baseline, weak and tired, and it is felt that patient dedicated rehab may help matters. Otherwise, it is does not help, then down the road patient will need long-term care. Today I spoke at length with his insurance company physician, Dr. Bob], and discussed his overall prognosis and his clinical condition, and that I do feel that rehab should help him. If not, the patient will need long-term care. On examination, afebrile. Pulse 94, respiration 18, blood pressure 115/70, pulse ox 93% on room air. LUNGS: Fair air entry. CARDIOVASCULAR: First and second sounds normal. Patient is able to answer questions, though at times he is confused. INVESTIGATIONS: Potassium 4. BUN 18, creatinine 0.53. DISCHARGE MEDICATIONS: 1. Alphagan 0.15% one drop both eyes b.i.d. 2. Xalatan 0.005% one drop both eyes at bedtime. 3. Men's multivitamin tablet p.o. daily. 4. Trusopt 2% one drop to both eyes b.i.d. 5. Mycostatin topically b.i.d. p.r.n. 6. Desitin 1 application topically as directed. 7. Tylenol 500 mg q.8. 8. Timoptic 0.5% one drop to both eyes b.i.d. 9. Pepcid 20 mg b.i.d. 10.Naproxen 250 mg p.o. b.i.d.; 14 tablets. 11.Norvasc 10 mg p.o. daily. 12.Risperdal 0.25 mg p.o. daily in the daytime and 0.5 mg p.o. at bedtime. DISPOSITION: [facility]. Follow up with Dr. Pena. Discussion and discharge planning more than 35 minutes. MMODL / IJN: [id number] /
--- NOTE | 2018-05-01 23:34 | PN ---
PROGRESS NOTE DATE OF SERVICE: April 30, 2018. PRESENTING COMPLAINT: Bilateral knee pain. INTERVAL HISTORY: Patient with bilateral knee pain, felt to be osteoarthritis flare up. Oral intake still remains a bit low, not working much with physical therapy. The patient's caregiver is present. The patient is off from his baseline normally more active. REVIEW OF SYSTEMS: Attempted for constitutional, cardiovascular, GI, pulmonary; relevant findings as above. CURRENT MEDICATIONS: Reviewed. PHYSICAL EXAMINATION: VITAL SIGNS: Temperature 98.4, pulse 95, respiratory 18, blood pressure 146/70, pulse ox 94 percent on room air. GENERAL APPEARANCE: Sitting up, awake. EYES: Pupils are equal. Conjunctivae normal. NECK: JVD not raised. Mass not palpable. RESPIRATORY: Effort normal. LUNGS are clear. CARDIOVASCULAR: 1st and 2nd sounds normal. No edema. ABDOMEN: Soft, nontender. Liver and spleen not palpable. PSYCHIATRY: Answers some simple questions. INVESTIGATIONS: White count 7.4, hemoglobin 11.9, potassium 3.7, BUN 20, creatinine 0.61. ASSESSMENT: 1. Acute delirium multifactorial with some improvement. 2. Moderate to severe cognitive impairment at baseline, probably from late onset Alzheimer's dementia. 3. Bilateral knee osteoarthritis flare up. 4. Diabetes mellitus type 2. 5. Medical debility. PLAN: insulation worker apprentice tells me that they will be a phone call from the insurance company so I can discuss the patient's care. At this point, I do believe patient should respond to physical therapy. If not, patient will need long-term placement. In the meantime, continue current medication and treatment plan. MMODL / IJN: [id number] /
--- NOTE | 2018-05-01 23:34 | PN ---
PROGRESS NOTE DATE OF SERVICE: 04/29/2018 PRESENTING COMPLAINT: Bilateral knee plain. INTERVAL HISTORY: This patient presented with bilateral knee arthritis flare up. Delirium was slightly better. The patient is not doing much activity. Oral intake has not been too good. The patient did get IV fluids. REVIEW OF SYSTEMS: Done for constitutional, cardiovascular, GI, pulmonary; relevant findings as above. CURRENT MEDICATIONS: Reviewed. PHYSICAL EXAMINATION: Temperature 97.8, pulse 82, respirations 16, blood pressure 149/74, pulse 91% on room air. GENERAL APPEARANCE: Sitting up, awake. EYES: Pupils equal. Conjunctivae normal. NECK: JVD not raised. Mass not palpable. Respiratory effort normal. LUNGS; Clear. CARDIOVASCULAR: 1st and 2nd sounds normal, no edema. ABDOMEN: Soft, nontender. Liver and spleen not palpable. PSYCHIATRY: Patient does answer some questions. INVESTIGATIONS: White count 9.2, hemoglobin 12.8, potassium 4.2, BUN 27, creatinine 0.56. ASSESSMENT: 1. Acute delirium, multifactorial. 2. Moderate to severe cognitive impairment at baseline, probably from late onset Alzheimer's dementia. 3. Bilateral knee arthritis, probably flare-up of osteoarthritis. 4. Diabetes mellitus type 2. PLAN: Continue medication and treatment plan. social worker delinquency prevention is looking into discharge planning. MMODL / IJN: [id number] /
== END 2018-05-01 16:35 | DRG 553 ==
LOC: EC 20:38 → 4MS4W 21:27
PROVIDERS: ADMIT Hospitalist; ATTEND Hospitalist
PROC: 0S9C3ZX Drainage of Right Knee Joint, Percutaneous Approach, Diagnostic (ICD-10-PCS; principal; 2018-04-25)
DX: M10.9 Gout, unspecified (principal); J18.9 Pneumonia, unspecified organism; F05 Delirium due to known physiological condition; E86.0 Dehydration; E11.9 Type 2 diabetes mellitus without complications; G30.1 Alzheimer's disease with late onset; F02.80 Dementia in other diseases classified elsewhere, unspecified severity, without behavioral disturbance, psychotic disturbance, mood disturbance, and anxiety; M17.0 Bilateral primary osteoarthritis of knee; H40.9 Unspecified glaucoma; Z79.899 Other long term (current) drug therapy; Z87.891 Personal history of nicotine dependence
CPT/HCPCS: 36415; 70450; 71045; 80048; 80053; 80306; 81001; 82550; 82803; 83036; 83735; 84550; 85025; 85652; 86140; 87040; 87070; 87086; 87205; 87502; 89050; 89060; 93005; 96365; 99284; 99285